=== PATIENT | female | born 1975 | race Caucasian/White ===

== ENCOUNTER → 2019-12-05 08:42 | Outpatient (CLI) | payer BC, SELFPAY ==
--- NOTE | ~2019-12-05 | CT_ITS ---
EXAMINATION: CT cervical spine wo con DATE: 12/05/2019 09:17 INDICATION: Postlaminectomy syndrome. Left neck pain with radiculopathy. TECHNIQUE: Computed tomography (CT) of the cervical spine was performed without intravenous contrast. Automated exposure control and iterative reconstruction technique were employed. The dose-length pro duct was 162.12 mGy-cm. COMPARISON: None FINDINGS: There is 4 degrees dextrocurvature of cervical spine. There are changes of anterior fusion procedure from C3 to C6 with bridging interbody bone graft at C3-C4, but not at C4-C5 or C5-C6. There is an anterior plate with screws from C3 to C6. Intervertebral disc heights are normal. The followin g disc levels are specifically discussed: C2-C3: There is mild bilateral uncovertebral joint osteoarthritis. There is mild left facet joint ost eoarthritis. There is no neural foraminal stenosis. There is no central canal stenosis. C3-C4: There is no uncovertebral joint hypertrophy. There is no facet joint hypertrophy. There is no neural foraminal stenosis. There is no central canal stenosis. C4-C5: There is no uncovertebral joint hypertrophy. There is severe bilateral facet joint osteoarthri tis. There is no neural foraminal stenosis. There is no central canal stenosis. C5-C6: There is mild bilateral uncovertebral joint hypertrophy. There is severe bilateral facet joint osteoarthritis. There is mild bilateral neural foraminal stenosis. There is mild central canal steno sis. C6-C7: There is no uncovertebral joint osteoarthritis. There is mild right and moderate left facet leonardo int osteoarthritis. There is no neural foraminal stenosis. There is no central canal stenosis. C7-T1: There is no uncovertebral joint osteoarthritis. There is severe bilateral facet joint osteoart hritis. There is mild bilateral neural foraminal stenosis. There is no central canal stenosis. IMPRESSION: 1. Anterior fusion procedure from C3 to C6 with bridging interbody bone at C3-C4. 2. Mild cervical spondylosis. Reviewed, dictated and finalized at location A. IMPRESSION: 1. Anterior fusion procedure from C3 to C6 with bridging interbody bone at C3-C 4. 2. Mild cervical spondylosis.
--- NOTE | ~2019-12-05 | XR_ITS ---
EXAMINATION: XR_CERV2-3V_CR DATE: 12/05/2019 09:23 INDICATION: Postlaminectomy syndrome, cervical region. Neck pain. TECHNIQUE: 3 views of the cervical spine including flexion and extension views were obtained. COMPARISON: CT cervical spine 12/05/2019 FINDINGS: There are changes of anterior fusion procedure from C3 to C6 with anterior plate and screws . There is bridging interbody bone at C3-C4. Intervertebral disc heights are normal. There is slight widening of the C4-C5 and C5-C6 disc spaces with flexion. There is severe facet joint osteoarthritis at C7-T1. No central canal stenosis or prevertebral soft tissue swelling. IMPRESSION: 1. Anterior fusion procedure from C3 to C6 with bridging interbody bone at C3-C4. Motion at the C4-C5 and C5-C6 disc spaces with flexion. Reviewed, dictated and finalized at location A. IMPRESSION: 1. Anterior fusion procedure from C3 to C6 with bridging interbody bone at C3-C 4. Motion at the C4-C5 and C5-C6 disc spaces with flexion.
== END ==
PROVIDERS: PCP Physician Assistant; Visit Provider Neurological Surgery
DX: M96.1 Postlaminectomy syndrome, not elsewhere classified (principal); Z98.1 Arthrodesis status; M47.812 Spondylosis without myelopathy or radiculopathy, cervical region
CPT/HCPCS: 72040; 72125

== ENCOUNTER → 2020-06-07 10:26 | Outpatient (CLI) | payer BC, SELFPAY ==
--- NOTE | ~2020-06-07 | MM_ITS ---
EXAMINATION: MM screening marisela BI w brandt HISTORY: Screening mammogram TECHNIQUE: Craniocaudal and mediolateral oblique 3-D tomosynthesis images were obtained and synthetic 2-D images were generated. CAD analysis was submitted and interpreted. COMPARISON: 09/16/2018, 08/05/2017, 06/30/2016 BREAST PARENCHYMAL COMPOSITION: The breasts are heterogeneously dense, which may obscure small masses . FINDINGS: RIGHT BREAST: There is no evidence of suspicious mass, calcification, or architectural distortion to suggest malignancy. There has been no significant interval change. LEFT BREAST: There is possible architectural distortion in the far posterior third of the outer left breast best appreciated 9 cm from the nipple on craniocaudal image 18/40. IMPRESSION: 1. Possible left breast architectural distortion. 2. Additional mammographic views and possible breast ultrasound are recommended. BI-RADS Category 0: Incomplete: Needs additional imaging evaluation. Reviewed, dictated and finalized at location A. [employer] IMPRESSION: 1. Possible left breast architectural distortion. 2. Additional mammographic views and possible breast ultrasound are recommended . BI-RADS Category 0: Incomplete: Needs additional imaging evaluation.
== END ==
PROVIDERS: Visit Provider Nurse Practitioner
DX: Z12.31 Encounter for screening mammogram for malignant neoplasm of breast (principal); R92.8 Other abnormal and inconclusive findings on diagnostic imaging of breast
CPT/HCPCS: 77063; 77067

== ENCOUNTER → 2020-07-01 14:31 | Outpatient (CLI) | payer BC, SELFPAY ==
--- NOTE | ~2020-07-01 | MM_ITS ---
EXAMINATION: MM diagnostic mammo unilat LT HISTORY: Possible architectural distortion on screening mammogram TECHNIQUE: Additional 3-D tomosynthesis images of the left breast were performed and synthetic 2-D im ages were generated. CAD analysis was submitted and interpreted. COMPARISON: 06/07/2020, 09/16/2018, 08/05/2017 FINDINGS: No architectural distortion is identified with spot compression of the outer left breast. T here is no suspicious mass or calcification. IMPRESSION: 1. No mammographic evidence of malignancy. 2. Recommend routine screening mammography in one year. BI-RADS Category 1: Negative Reviewed, dictated and finalized at location A.
== END ==
PROVIDERS: PCP Physician Assistant; Visit Provider Obstetrics & Gynecology Gynecology
DX: R92.8 Other abnormal and inconclusive findings on diagnostic imaging of breast (principal)
CPT/HCPCS: 77065

== ENCOUNTER → 2020-09-24 16:31 | Outpatient (CLI) | payer BC, SELFPAY ==
--- NOTE | ~2020-09-24 | XR_ITS ---
EXAMINATION: XR foot RT min 3V DATE: 09/24/2020 16:47 INDICATION: Right foot contusion. TECHNIQUE: 4 views of right foot were obtained. COMPARISON: Right ankle radiographs 04/05/2016 FINDINGS: Bone alignment is normal. No fracture. Joint spaces are well maintained. IMPRESSION: 1. Normal right foot. Reviewed, dictated and finalized at location A. IMPRESSION: 1. Normal right foot.
== END ==
PROVIDERS: PCP Physician Assistant; Visit Provider Physician Assistant
DX: S90.31XA Contusion of right foot, initial encounter (principal)
CPT/HCPCS: 73630

== ENCOUNTER → 2020-12-12 02:40 | Outpatient (CLI) | payer BC, SELFPAY ==
[2020-12-12 18:57] LABS: SARS-CoV-2 RNA PCR Negative
== END ==
PROVIDERS: PCP Physician Assistant; Visit Provider Internal Medicine Gastroenterology
DX: Z20.822 Contact with and (suspected) exposure to COVID-19 (principal)
CPT/HCPCS: C9803; U0003; U0005

== ENCOUNTER 2020-12-15 01:33 | Day surgery (SDC) | payer BC, SELFPAY ==
[2020-12-04 09:01] VITALS: BMI 21.9
--- NOTE | 2020-12-04 10:14 | PC.NURSE ---
PATIENT CONCERNED ABOUT PREP. SHE STATES COLONOSCOPY 2018 SHE HAD A POOR PREP DUE TO INABILITY TO TOLERATE PREP AND POOR RESULTS. SPOKE WITH DR. REYNOSO AND GAVE INSTRUCTIONS FOR PATIENT TO TAKE 4-5MG DUCOLAX TABLETS AT 1200 AND MAGNESIUM CITRATE 10OZ. AT 2230 2 DAYS PRIOR TO PROCEDURE ALONG WITH FOLLOWING A CLEAR LIQUID DIET, DAY BEFORE PROCEDURE PT WILL REMAIN ON CLEAR LIQUIDS, AT 3PM WILL START SUTAB PREP AND FOLLOW THE INSTRUCTIONS GIVEN WILL TAKE FIRST DOSE AT 3PM AND SECOND DOSE AT 2230. INSTRUCTIONS REVIEWED WITH PATIENT AND SHE VERBALIZES UNDERSTANDING.
[2020-12-15 06:52] VITALS: BP 109/76; PULSE 71; RESP 20; TEMP 36.6; O2SAT 100; BMI 21.6
[2020-12-15] MEDS: LACTATED RINGERS 1,000 ML 150 ML IV CONT (07:05)
--- NOTE | 2020-12-15 07:11 | WPDANESEPPF ---
Anes - Initial Pre Proc Eval Procedure: Operation Date: 12/15/20 08:00 Proposed Procedures p Screening Colonoscopy - Naren Stover MD Date/Time: 12/15/20 07:11 Surgeon: Naren Stover MD Pre Op Diagnosis: neoplasm screening, family hx colon CA Patient Data Age: 45 Gender: F Height: 1.57 m Weight: 53.6 kg Last Vital Signs Temp 36.6 C 12/15/20 06:52 Pulse 71 12/15/20 06:52 Resp 20 12/15/20 06:52 BP 109/76 12/15/20 06:52 Pulse Ox 100 12/15/20 06:52 Allergies Allergy/AdvReac Type Severity Reaction Status Date / Time Penicillins Allergy Intermediate RASH Verified 12/15/20 06:48 Home Medications Medication Instructions Recorded Confirmed Type diltiazem HCl 300 mg 300 mg PO DAILY 07/10/20 12/04/20 History capsule,extended release 24 hr losartan 25 mg tablet 25 mg PO BID 07/10/20 12/04/20 History melatonin 10 mg capsule 10 mg PO QHS 07/10/20 12/04/20 History morphine 15 mg PO TID 12/04/20 12/04/20 History Patient hx anesthesia problems: none Family hx anesthesia problems: none PMFSH Past Medical History Medical History (Updated 12/15/20 @ 07:12 by Milton King MD) Back pain Constipation Family history of colon cancer in mother Headache Family History Family History Mother Hypertension Family history of coronary artery disease Carcinoma of colon, Onset Age: 66 Family history of heart disease in male family member before age 55 Father Family history of gastrointestinal disorder Family history of peptic ulcer Family history of heart disease in male family member before age 55 Social History Social History (Updated 07/10/20 @ 14:33 by Lakisha Uriarte CMA) Smoking status: Never smoker Alcohol intake: current Drinks per week: 3 Substance use: never Substance use type: does not use Living arrangements: with family Spiritual care concerns: No Anes - Eval Final PreProcedure Day of Procedure 12/15/20 07:11 Patient weight: obese Heart: regular rate and rhythm Lungs: clear to auscultation and normal air movement Airway: Mallampati scale class II Neurological: alert and oriented Last oral intake: >/= 8 hours ASA classification: III Emergent: no Anesthetic plan: proceed Anesthesia type and monitoring: general GIVS Informed Consent: The patient's anesthetic plan and its attendant risks and benefits were discussed with the patient/family/POA. Questions were solicited and answers provided to the satisfaction of the patient/family/POA.
--- NOTE | 2020-12-15 07:59 | PM.HPGS ---
History of Present Illness History of Present Illness Consent: Risks, benefits, and alternatives have been discussed and questions answered. Patient agrees to proceed with procedure. Chief complaint: neoplasm screening, family hx colon CA Narrative: Stacey Davies is a 45 year old female with first colonoscopy 2010 then 1 year ago but poor prep (mother has colon cancer). Review of Systems Constitutional: Constitutional: Denies headache(s) and Denies weakness Eyes: Eyes: Denies blurry vision ENT: Reports Normal hearing present, Denies headache(s) and Denies neck pain Cardiovascular: Cardiovascular: Denies chest pain and Denies dyspnea Respiratory: Respiratory: Denies dyspnea Gastrointestinal: Gastrointestinal: Reports no additional gastrointestinal complaints Genitourinary: Genitourinary: Denies dysuria Musculoskeletal: Musculoskeletal: Denies neck pain Integumentary/Breasts: Skin/Breast: Denies dry skin Neurologic: Reports Normal hearing present, Denies headache(s) and Denies weakness Psychiatric: Psychiatric: Denies anxiety Endocrine: Endocrine: Denies change in body appearance Hematologic/Lymphatic: Hematologic/Lymphatic: Denies easy bleeding Allergic/Immunologic: Allergic/Immunologic: Denies urticaria PMFSH Past Medical History Medical History (Updated 12/15/20 @ 07:12 by Milton King MD) Back pain Constipation Family history of colon cancer in mother Headache Family History Family History Mother Hypertension Family history of coronary artery disease Carcinoma of colon, Onset Age: 66 Family history of heart disease in male family member before age 55 Father Family history of gastrointestinal disorder Family history of peptic ulcer Family history of heart disease in male family member before age 55 Social History Social History (Updated 07/10/20 @ 14:33 by Lakisha Uriarte [facility]) Smoking status: Never smoker Alcohol intake: current Drinks per week: 3 Substance use: never Substance use type: does not use Living arrangements: with family Spiritual care concerns: No Meds Home Medications and Allergies Home Medications Medication Instructions Recorded Confirmed Type diltiazem HCl 300 mg 300 mg PO DAILY 07/10/20 12/04/20 History capsule,extended release 24 hr losartan 25 mg tablet 25 mg PO BID 07/10/20 12/04/20 History melatonin 10 mg capsule 10 mg PO QHS 07/10/20 12/04/20 History morphine 15 mg PO TID 12/04/20 12/04/20 History Allergies Allergy/AdvReac Type Severity Reaction Status Date / Time Penicillins Allergy Intermediate RASH Verified 12/15/20 06:48 Vital Signs Vital Signs - 24 hr 12/15/20 06:52 Temperature 97.9 F Pulse Rate 71 Respiratory Rate 20 Blood Pressure 109/76 Pulse Oximetry 100 Exam Const: General: comfortable and no acute distress HENMT: General nose exam: Normal nares present Eyes: General: appearance normal, both eyes and all related structures Neck: Neck: no JVD Resp: Auscultation: clear to auscultation bilaterally Cardio: Rate: regular rate Rhythm: regular rhythm GI: Inspection: non-distended GI Palp: Yes Soft to palpation Skin: General skin exam: normal color Neuro: General: gait normal Speech: normal speech Extrem: General: normal to inspection Psych: Mental Status: mental status grossly normal Assessment and Plan Assessment and plan (1) Family history of colon cancer in mother: Code(s): Z80.0 - Family history of malignant neoplasm of digestive organs Status: Acute Assessment and Plan: colonoscopy
--- NOTE | 2020-12-15 08:12 | SUR.OPER ---
cecal time 0812
[2020-12-15 08:24] VITALS: BP 95/56; PULSE 82; RESP 19; O2SAT 97
[2020-12-15 08:34] VITALS: BP 104/57; PULSE 69; RESP 15; O2SAT 99
[2020-12-15 08:44] VITALS: BP 110/67; PULSE 66; RESP 15; O2SAT 100
== END 2020-12-15 08:54 | disposition home or self-care (01) ==
PROVIDERS: PCP Physician Assistant; Visit Provider Internal Medicine Gastroenterology
PROC: 0DJD8ZZ Inspection of Lower Intestinal Tract, Via Natural or Artificial Opening Endoscopic (ICD-10-PCS; CPT 45378; principal; 2020-12-15 08:00)
DX: Z12.11 Encounter for screening for malignant neoplasm of colon (principal); D12.2 Benign neoplasm of ascending colon; K57.30 Diverticulosis of large intestine without perforation or abscess without bleeding; K64.8 Other hemorrhoids; K64.4 Residual hemorrhoidal skin tags; Z80.0 Family history of malignant neoplasm of digestive organs
CPT/HCPCS: 45385; 88305; J2704; J7120

== ENCOUNTER → 2021-05-20 13:28 | Outpatient (CLI) | payer BC, SELFPAY ==
--- NOTE | ~2021-05-20 | MR_ITS ---
EXAMINATION: MR brain/brain stem wo con DATE: 05/20/2021 14:18 INDICATION: Chronic migraine without aura without status migrainosus. TECHNIQUE: Magnetic resonance imaging (MRI) of the brain and brainstem was performed without intraven ous contrast. Sequences included sagittal and axial T1-weighted FSE, axial diffusion-weighted FS EPI, axial T2*-weighted GRE, axial T2-weighted FLAIR Propeller, and axial T2-weighted Propeller. Apparent diffusion coefficient (ADC) maps were created. COMPARISON: None. FINDINGS: There is no intracranial hemorrhage, acute infarction, or abnormal intracranial mass lesion . The ventricles are normal in size. The paranasal sinuses are clear. The orbits are normal. The mast oid air cells are normal. IMPRESSION: 1. Normal brain. Reviewed, dictated and finalized at location A. ER WIRE LOOM IMPRESSION: 1. Normal brain.
== END ==
PROVIDERS: PCP Physician Assistant
DX: G43.709 Chronic migraine without aura, not intractable, without status migrainosus (principal)
CPT/HCPCS: 70551

== ENCOUNTER → 2021-08-07 12:19 | Outpatient (CLI) | payer BC, SELFPAY ==
--- NOTE | ~2021-08-07 | MM_ITS ---
EXAMINATION: MM screening marisela BI w brandt HISTORY: Screening mammogram TECHNIQUE: Craniocaudal and mediolateral oblique 3-D tomosynthesis images were obtained and synthetic 2-D images were generated. CAD analysis was submitted and interpreted. COMPARISON: 07/01/2020, 06/07/2020, 09/16/2018, 08/2017 bilateral screening mammogram examinations BREAST PARENCHYMAL COMPOSITION: The breasts are heterogeneously dense, which may obscure small masses . FINDINGS: Possible new focal asymmetry in the mid depth outer left breast, lower outer quadrant. Diag nostic left mammogram is recommended, with ultrasound if required. Otherwise there is no evidence of suspicious mass, calcification, or architectural distortion to sug gest malignancy in either breast. There has been no other suspicious interval change. IMPRESSION: 1. Possible new focal asymmetry in the lower outer left breast 2. Diagnostic left mammogram is recommended, with ultrasound if required BI-RADS Category 0: Incomplete: Needs additional imaging evaluation. Reviewed, dictated and finalized at location A.
== END ==
PROVIDERS: PCP Nurse Practitioner; Visit Provider Nurse Practitioner
DX: Z12.31 Encounter for screening mammogram for malignant neoplasm of breast (principal); R92.8 Other abnormal and inconclusive findings on diagnostic imaging of breast
CPT/HCPCS: 77063; 77067

== ENCOUNTER → 2021-08-25 07:45 | Outpatient (CLI) | payer BC, SELFPAY ==
--- NOTE | ~2021-08-25 | MMUS_ITS ---
EXAMINATION: MM diagnostic marisela LT w brandt, US breast LT complete HISTORY: TECHNIQUE: Additional 3-D tomosynthesis images of were performed and synthetic 2-D images were genera rafael. CAD analysis was submitted and interpreted. High resolution breast ultrasound was performed. COMPARISON: None FINDINGS: MAMMOGRAPHIC FINDINGS: No suspicious reproducible mass or architectural distortion or any malignant calcification, skin thic kening or retraction is evident. However, the heterogeneously dense stroma may obscure a mass. Ultrasound examination therefore was pe rformed. ULTRASOUND: 2:00 2 cm from nipple: Irregular hypoechoic 2.9 x 7.7 x 5.8 mm circumscribed lesion is noted with nor mal color flow signal. . No shadowing is noted. Considering the irregular margins and some internal v ascularity, ultrasound-guided biopsy is recommended. No suspicious mass or shadowing is detected otherwise. IMPRESSION: 1. Indeterminate 2.9 x 7.7 x 5.8 mm circumscribed hypoechoic lesion with minimal internal vascularity at 2:00 2 cm from nipple 2. Ultrasound-guided biopsy is recommended BI-RADS category 4, suspicious findings. Dr. Cormier telephoned the report and ultrasound guided biopsy recommendation on 08/21/2021 at 08 4 cm to Triage Department voicemail at extension 225 Reviewed, dictated and finalized at location A. IMPRESSION: 1. Indeterminate 2.9 x 7.7 x 5.8 mm circumscribed hypoechoic lesion with minima l internal vascularity at 2:00 2 cm from nipple 2. Ultrasound-guided biopsy is recommended BI-RADS category 4, suspicious findings. Dr. Cormier telephoned the report and ultrasound guided biopsy recommendation on at 08 4 cm to Triage Department voicemail at extension 225
== END ==
PROVIDERS: PCP Physician Assistant; Visit Provider Obstetrics & Gynecology Gynecology
DX: R92.8 Other abnormal and inconclusive findings on diagnostic imaging of breast (principal)
CPT/HCPCS: 76641; 77061; 77065; G0279

== ENCOUNTER → 2022-08-10 14:46 | Outpatient (CLI) | payer BC, SELFPAY ==
--- NOTE | ~2022-08-10 | MM_ITS ---
EXAMINATION: MM screening marisela BI w brandt HISTORY: Screening mammogram TECHNIQUE: Craniocaudal and mediolateral oblique 3-D tomosynthesis images were obtained and synthetic 2-D images were generated. CAD analysis was submitted and interpreted. COMPARISON: 08/07/2021, 06/07/2020, 09/16/2018 BREAST PARENCHYMAL COMPOSITION:The breasts are heterogeneously dense, which may obscure small masses. FINDINGS: Benign calcifications at the upper, outer right breast are noted. No suspicious mass, calci fication, or architectural distortion are identified in either breast to suggest malignancy. There mtz s been no suspicious interval change. IMPRESSION: No mammographic evidence of malignancy. Recommend routine screening mammography in one year. BI-RADS Category 2: Benign finding(s). Reviewed, dictated and finalized at location .
== END ==
PROVIDERS: PCP Physician Assistant; Visit Provider Nurse Practitioner
DX: Z12.31 Encounter for screening mammogram for malignant neoplasm of breast (principal)
CPT/HCPCS: 77063; 77067

== ENCOUNTER 2023-08-30 08:07 | Outpatient (CLI) | payer BC, SELFPAY ==
--- NOTE | 2023-08-30 13:57 | WPDPFTINT ---
PFT Procedure Performed PFT Procedure Performed Spirometry with Pre/Post Bronchodilator Plethysmography (Lung Vol) Diffusing Cap (DLCO) Flow Vol Loop PFT Interpretation Lung volumes were measured with the body plethysmography method. Lung volumes are unremarkable. Spirometry showed normal expiratory flow rates and a normal FEV1 to FVC ratio 76%. Following administration of a bronchodilator there was no significant increase in expiratory flow rates. Lung diffusion capacity is within the normal range at 93% predicted. The flow-volume loop is unremarkable. Impression: Spirometry, lung volumes, lung diffusion capacity all within the normal range.
== END 2023-08-30 08:08 | disposition home or self-care (01) ==
PROVIDERS: PCP Physician Assistant; Visit Provider Physician Assistant
DX: J45.909 Unspecified asthma, uncomplicated (principal)
CPT/HCPCS: 94060; 94726; 94729

== ENCOUNTER 2023-12-13 13:05 | Outpatient (CLI) | payer BC, SELFPAY ==
--- NOTE | ~2023-12-13 | MM_ITS ---
EXAMINATION: MM screening marisela BI w brandt HISTORY: Screening mammogram TECHNIQUE: Craniocaudal and mediolateral oblique 3-D tomosynthesis images were obtained and synthetic 2-D images were generated. CAD analysis was submitted and interpreted. COMPARISON: 08/21/2022, 08/25/2021, 622, 06/07/2020 BREAST PARENCHYMAL COMPOSITION:Dense: The breasts are heterogeneously dense, which may obscure small masses. FINDINGS: Stable benign calcifications at the outer right breast. No suspicious mass, calcification, or architectural distortion are identified in either breast to suggest malignancy. There has been no suspicious interval change. IMPRESSION: No mammographic evidence of malignancy. Recommend routine screening mammography in one year. BI-RADS Category 2: Benign finding(s). Reviewed, dictated and finalized at location .
== END 2023-12-13 13:06 | disposition home or self-care (01) ==
PROVIDERS: PCP Physician Assistant; Visit Provider Obstetrics & Gynecology Gynecology
DX: Z12.31 Encounter for screening mammogram for malignant neoplasm of breast (principal)
CPT/HCPCS: 77063; 77067

== ENCOUNTER 2024-01-03 12:08 | Outpatient (CLI) | payer BC, SELFPAY ==
--- NOTE | ~2024-01-03 | XR_ITS ---
AP and lateral views of the left hip Clinical history: Pain Findings: No acute fracture or dislocation is seen. Osseous alignment is anatomic. Left hip joint is preserved. Soft tissues are unremarkable. Impression: No significant abnormality is seen. Reviewed, dictated and finalized at location M. Impression: No significant abnormality is seen.
== END 2024-01-03 12:09 | disposition home or self-care (01) ==
PROVIDERS: PCP Physician Assistant; Visit Provider Physician Assistant
DX: M79.672 Pain in left foot (principal); M25.552 Pain in left hip
CPT/HCPCS: 73502; 73630

== ENCOUNTER 2024-07-10 09:58 | Outpatient (CLI) | payer BC, SELFPAY ==
--- NOTE | ~2024-07-10 | XR_ITS ---
Clinical Indication: Cough PA and lateral views of the chest: Comparison: 01/02/2008 Findings: The lungs are clear, without evidence of focal consolidation or pleural effusion. Cardiome diastinal silhouette is within normal limits. Bones and soft tissues are unremarkable. Impression: Normal chest. Reviewed, dictated and finalized at [facility]. Impression: Normal chest.
== END 2024-07-10 09:59 | disposition home or self-care (01) ==
PROVIDERS: PCP Physician Assistant; Visit Provider Physician Assistant
DX: R05.9 Cough, unspecified (principal)
CPT/HCPCS: 71046

== ENCOUNTER 2024-12-28 11:53 | Outpatient (CLI) | payer BC, SELFPAY ==
--- NOTE | ~2024-12-28 | MM_ITS ---
EXAMINATION: screening [facility] BI w [facility] INDICATION: Asymptomatic, referred for screening mammogram COMPARISON: 12/13/2023 through 09/16/2018 TECHNIQUE: Digital Breast Tomosynthesis CC, MLO views of Both breasts were obtained with computer-aided detection to assist in interpretation of the study. FINDINGS: The breasts are heterogeneously dense, which may obscure small masses. There is increasing group of microcalcifications the background of focal asymmetry in the superior lateral right breast at posterior third. Elsewhere, there are no mammographic features of malignancy. IMPRESSION: 1. Right breast Incompletely characterized group of calcifications. 2. No evidence of malignancy in the Left breast. RECOMMENDATION: Right breast Diagnostic mammogram with true lateral, and appropriate magnification views. BI-RADS Category 0: Incomplete: Needs additional imaging evaluation. Reviewed, dictated and finalized at location B. IMPRESSION: 1. Right breast Incompletely characterized group of calcifications. 2. No evidence of malignancy in the Left breast. RECOMMENDATION: Right breast Diagnostic mammogram with true lateral, and appropriate magnificat ion views. BI-RADS Category 0: Incomplete: Needs additional imaging evaluation.
--- OUTSIDE RECORDS SUMMARY | 2024-12-28 11:55 | XMS_ITS | Encounter Summary ---
Author Organization [facility] Address [address] [place] [address] Care Team Providers Care Staff Nuclear Weapons Officer Name Role Phone Neetu Andre Primary Care Provider [phone] Encounter Details Date Type Department Care Team (Late st Contact Info) Description 08/10/2005 Outpatient [facility] [id number] [place] [address] [address] [place] [address] Shivam Farnsworth (Two) Social History Tobacco Use Types Packs/Day Years Used Date Smoking Tobacco: Never Assessed Comments Unknown Sex and Gender Information Value Date Recorded Sex Assigned at Not on file Legal Sex Female 4:46 AM CLINICAL LAB SPECIALIST Gender Identity Not on file Sexual Orientation Not on file documented as of this encounter Plan of Treatment Not on file documented as of this encounter Visit Diagnoses Not on filedocumented in this encounter Care Teams Staff Nuclear Weapons Officer Relationship Specialty Start Date End Date Neetu Andre PA PCP - General Physician Cigar Brander 12/13/18 documented as of this encounter
--- OUTSIDE RECORDS SUMMARY | 2024-12-28 11:55 | XMS_ITS | Patient Health Record ---
Author Organization [facility] Address [address] [facility] [address] [place], [place] [id number] Care Team Providers Care Pig Farmer Name Role Phone RYAN OSPINA Primary Care Provider Timothy chelo JessicaMargaret whitney Unavailable [phone] REASON FOR REFERRAL No Information MEDICATIONS Medication SIG (Take, Route, Frequency, Duration) Notes Start Date End Date Status Burr Active Amrix 15 mg 1 cap(s) orally once a day Active dilTIAZem 360 mg/24 hours 1 cap(s) orall y take once a day Active dihydroergotamine Ac tive losartan/HCTZ 50/12.5 mg once a day Active Lo Loestrin Fe (28 Day) biphasic 10 mcg-1 mg 1 tab(s) orally once a day Active Mirena Active ondansetron 4 mg 1 tab(s) orally ever y 8 hours Active SOCIAL HISTORY Tobacco Use: Social History Observation Description Date Details (start date - stop date) Never Smoker NA - NA Sex Assigned At : Social History Observation Description Sex Assigned At Unknown Tobacco Use: Question Answer Notes Smoking Status nonsmoker PROBLEMS Problem Type ICD Code Onset Dates Problem Status W/U Status Risk SNOMED Code Notes Problem Cervicalgia (M54.2) Active confirmed 82001606 Problem Left shoulder pain (M25.512) Active confirmed 60309417 Problem Myalgia (M79.1) Active confirmed 811940 01 Problem Skin rash (R21) Active confirmed 849835 003 Problem Sacroiliac pain (M53.3) Active confirmed Sacroiliac joint pain (525722215) Problem Non-smoker (Z78.9) Active confirmed 9650773 Problem Other snf (current) drug therapy (Z79.899) Active confirmed 453524457 Problem Dry eyes (H04.123) Active confirmed Dry eyes (118438107) PLAN OF TREATMENT Pending Test Test Name Order Date X ray : SI joints- outside order 016 -Xray slip given 09/17/2015 Future Test Test Name Order Date AST (SGOT) 03/04/2016 Creatinine, Serum 03/04/2016 ALT (SGPT) 03/04/2016 CBC With Differential/Platelet 6 Lab slip given 03/04/2016 Insurance Providers Payer Name Payer Address Payer Phone Subscriber Number Group Number Insured Name Patient Relationship to Insured Coverage Start Date Coverage End Date [employer] PPO - NR [address] [place] [address] [id number] Stacey Davies Self - patient is the insured 6 MEDICAL (GENERAL) HISTORY Medical History History ICD Code bruises easily migraine headache tension headaches ear ache high blood pressure irregular heart beat rapid heartbeat swelling of ankles/feet bronchitis bowel changes constipation irritable bowel syndrome hemorrhoids indigestion Nausea frequent urination gallstones stomach pain/cramps rectal bleeding chicken pox pneumonia rheumatic fever Surgical History Surgery Date(Month/Year) fusion C3-C6 2015 C3 fusion 2014 Lasik 2005 C section 2000 hemorrhoidectomy 2005 gallbladder surgery 2004 [place] teeth 1995
--- OUTSIDE RECORDS SUMMARY | 2024-12-28 11:55 | XMS_ITS | Encounter Summary ---
Author Organization [facility] Address 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
--- OUTSIDE RECORDS SUMMARY | 2024-12-28 11:56 | XMS_ITS | Clinical Summary ---
Author Organization [facility] Address [address] [place] [address] Care Team Providers Care Depot Agent Name Role Phone JesNeetu Primary Care Pr ovider Nico Lam MD Unavailable [phone] Allergies Active Allergy Reactions Criticality Noted Date Comments Penicillins Rash Medium Occurred about 20 years ago as a young adult. Pravastatin Unknown Low 02/23/2016 Medications melatonin 5 mg tablet Take 1 tablet (5 mg total) by mouth nightly as needed Active losartan (COZAAR) 25 mg tablet Take 2 tablets (50 mg total) by mouth daily Active cholecalciferol (VITAMIN D-3) 1,000 unit capsule Take 1 capsule (1,000 Units total) by mouth daily Active Nurtec ODT tablet,disinteg rating 1 tablet (75 mg total) as needed 2 Active dilTIAZem CD (CARDIZEM CD) 300 mg 24 hr capsule Take 1 capsule (300 mg total) by mouth daily Active multivitamin capsule Take 1 capsule by mouth daily Active magnesium gluconate 200 mg tabletIndicatio ns:hypomagnesem ia Take 1 tablet (200 mg total) by mouth 2 (two) times a day Active fish oil-dha-epa 1,200-144-216 mg capsule Take 1 capsule by mouth daily Active acetaminophen 500 mg capsuleIndicati ons:Pain Take 2 capsules (1,000 mg total) by mouth every 6 (six) hours 30 tablet 1 2 Active Additional Information Patient not taking.Reported on 11/06/2024 ciprofloxacin-d exAMETHasone (CIPRODEX) otic suspension INSTILL 4 DROPS INTO AFFECTED EAR(S) TWICE A DAY FOR 7 DAYS Active estradioL (VIVELLE-DOT) 0.025 mg/24 hr APPLY 1 PATCH TOPICALLY TO THE SKIN 2 TIMES A WEEK 5 Active progesterone (PROMETRIUM) 200 mg capsule Take by mouth daily 5 Active hydrOXYzine (ATARAX) 25 mg tablet Take 1 tablet (25 mg total) by mouth 3 (three) times a day as needed for itching Active Active Problems Problem Noted Date Diagnosed Date Pseudarthrosis after fusion or arthrodesis 12/23 Overview (12/23/2021): Added automatically from request for surgery [id number] Pseudoarthrosis of cervical spine 10/07/2021 Assessment & Plan (10/07/2021 3:32 PM CDT): Ms. Davies has pseudoarthrosis of the cervical spine with increasing neck pain and popping. We again discussed that neck pain can be very difficult symptom to treat. If it is related pseudoarthrosis, she likely very surgery. It is unrelated, then not have much effect pain. She voices understanding. I have offered her surgery in the form C4-C6 posterior fixation and fusion with allograft. She will think about things and let us know how she wishes to proceed. Postlaminectomy syndrome, cervical region 2019 Overview (12/19/2019): Added automatically from request for surgery [id number] Assessment & Plan (02/05/2021 2:41 PM CDT): Ms. Davies has persistent neck pain with pseudoarthrosis C4-5 and C5-6. She has a solid fusion C3-4. She has no signs of radiculopathy or myelopathy. I have offered her posterior fixation from C4-C6 with posterior fusion whenever she wishes to proceed. She is aware that neck pain is a symptom that is difficult to treat surgically and still may not be gone after anterior and posterior fusion of these levels. Assessment & Plan (07/29/2020 2:04 PM CDT): Ms. Davies is status post C4-C6 ACDF on 02/18/2020 for pseudoarthrosis. She reports that she has resolution of arm symptoms. She still has continued stiffness in her neck and upper trapezius stiffness and pain which is unchanged from prior to surgery. She continues with dry needling by physical therapy which she finds extremely helpful. We will reorder this. I plan to see her back in 6 months time with repeat flexion-extension x-rays at that time. Assessment & Plan (03/25/2020 1:45 PM EDUCATION ADVISER): PLAN: - Start physical therapy/aqua therapy/home exercise program - After 6 weeks, patient may resume NSAIDs, may increase activity as tolerated. 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 Lam in 4.5 months with Flexion/Extension Cervical spine films. Left arm pain 11/20/2019 Assessment & Plan (11/27/2019 11:35 AM CDT): Ms. Davies has left neck and arm pain. She has some known bursitis of her left shoulder. She is status post C3-C6 ACDF. Her current MRI does not show any significant spinal cord or nerve root impingement. It is not completely clear whether she has a solid fusion at C4-5 and C5-6. We will get flexion-extension films to look for any movement within the construct or abnormal movement above or below the construct. We will also get a CT of the cervical spine to better evaluate the fusion within the construct. We will speak to her by phone about the results and further recommendations. If it seems to be solidly fused with no abnormal listhesis, she may benefit from a left upper extremity EMG/nerve conduction stretching to evaluate for peripheral nerve entrapment verses cervical radiculopathy. Cervicalgia 04/17/2010 Assessment & Plan (02/04/2021 1:39 PM CDT): Ms. Davies is status post C3-4 fusion and anterior cervical instrumentation C4-C6. She has some movement at C4-5 and C5-6 on dynamic range of motion. She has a little over 1 mm movement at C2-3 on dynamic range of motion which is unchanged compared to prior films. She has been offered and oral surgery for a small airway by an ENT surgeon. She is considering this. I have offered her C4-C6 posterior fixation and fusion whenever she wishes to proceed given her chronic neck pain and pseudoarthrosis at C4-5 and C5-6. We discussed including the C2-3 level, but this is risky given the trajectory of the screws through C2 pars. Diarrhea 12/20/2008 Constipation 12/20/2008 Heartburn 12/20/2008 Hypertension 12/20/2008 Assessment & Plan (11/11/2019 4:21 PM CDT): Blood pressure is under excellent control. Will not make any changes in the regimen. Maintain lifestyle modifications. Encounters Date Type Department Care Team Description 12/04/2024 12:32 PM CDT - 12/04/2024 11:59 PM CDT Hospital Encounter [facility] ` [address] [place] [address] Other specified conditions associated with female genital organs and menstrual cycle Discharge Disposition: Discharge to home or self care 11/22/2024 3:29 PM CDT - 11/22/2024 11:59 PM CDT Hospital Encounter [facility] Imaging and Radiology [address] [place] [address] Calculus of kidney Discharge Disposition: Discharge to home or self care 11/07/2024 Results Follow-Up [facility] [place] [address] [place] [phone] Arina Morin NP Urine culture Urine, clean voided 11/06/2024 8:19 AM CDT - 11/06/2024 11:59 PM CDT Hospital Encounter [address] [address] Body aches Discharge Disposition: Discharge to home or self care 11/06/2024 8:15 AM CDT Office Visit [facility] [place] [address] [phone] Nichols, Paula F., JET ENGINE MECHANIC Body aches (Primary Dx); Acute cystitis with hematuria from Last 3 Months Immunizations Immunization Administration Dates Next Due Pfizer SARS-CoV-2 Monovalent Vaccination (12+ Yrs) PURPLE 07/27/2020,07/05/2020 Surgical History Surgery Date Site/Laterality Comments OR HEMORRHOIDECTOMY INTERNAL RUBBER BAND LIGATIONS 04/04/2000 - 04/03/2001 WISDOM TOOTH EXTRACTION LAPAROSCOPIC CHOLECYSTECTOMY SECTION ANTERIOR CERVICAL DISCECTOMY W/ FUSION 04/04/2013 - 04/03/2014 C3-4 HYSTERECTOMY LASIK SPINE HARDWARE REMOVAL 04/04/2014 - 04/03/2015 C3-6 ACDF ANTERIOR FUSION CERVICAL SPINE 02/03/2020 - 03/03/2020 C4-6 ACDF Revision (Genaro) POSTERIOR FUSION CERVICAL SPINE 04/02/2022 C3-T1(Dr. Vargas) Medical History Medical History Date Comments Migraines HTN (hypertension) Postlaminectomy syndrome, cervical region IBS (irritable bowel syndrome) Osteoarthritis PONV (postoperative nausea and vomiting) Family History Medical History Relation Name Comments Cancer Father Cancer Mother Diabetes Mother Relation Name Status Comments Father Mother Social History Tobacco Use Types Packs/Day Years Used Date Smoking Tobacco: Never Smokeless Tobacco: Never Tobacco Cessation:Counseling Given: Not Answered Alcohol Use Standard Drinks/Week Comments Yes 0 (1 standard drink = 0.6 oz pur e alcohol) 2-3 PER WEEK AUDIT-C Answer Date Recorded Q1: How often do you have a drink containing alc ohol? 2-3 times a week 03/17/2022 Q2: How many drinks containi ng alcohol do you have on a typical day when you are drinking? 1 or 2 03/17/2022 Q3: How often do you have si x or more drinks on one occasion? Never 03/17/2022 PHQ-2 Answer Date Recorded PHQ-2 Total Score (If total score is 3 or more points, staff should administer the PHQ-9) 0 11/20/2019 Comments No Sex and Gender Information Value Date Recorded Sex Assigned at Not on file Legal Sex Female 9:44 PM EDUCATION ADVISER Gender Identity Not on file Sexual Orientation Not on file Obstetrics History Last Filed Vital Signs Vital Sign Reading Time Taken Comments Blood Pressure 108/68 11/06/2024 8:11 AM CDT Pulse 98 11/06/2024 8:11 AM CDT Temperature 36.3 C (97.4 F) 11/06/2024 8:11 AM CDT Respiratory Rate 16 11/06/2024 8:11 AM CDT Oxygen Saturation 98% 11/06/2024 8:11 AM CDT Inhaled Oxygen Concentration - - Weight 61.7 kg (136 lb) 11/06/2024 8:11 AM CDT Height 157.5 cm (5' 2) 11/06/2024 8:11 AM CDT Body Mass Index 24.87 11/06/2024 8:11 AM CDT Plan of Treatment Health Maintenance Due Date Last Done Comments Breast Cancer Screening-Mammogram 1975 Colon Cancer Screening-Colonoscopy 1975 Hepatitis C Screening 1975 Hepatitis B Screening 06/05/1993 Regular Well Visit/Exam 18-64 06/05/1993 DTaP/Tdap/Td Vaccine (1 - Tdap) 04/05/1999 04/04/1999 Depression Screening 11/19/2020 11/20/2019, 11/20/2019 Covid-19 Vaccine (3 - 2024-2 6 season) 2024 07/27/2020, 07/05/2020 Influenza Vaccine (#1) 2024 01/23/2007 Pneumococcal vaccine <65 Aged Out No longer eligible based on patient's age to complete this topic Medical Devices Implanted Type Area Controls Designer Device Identifier Shelf Expiration Date Model / Serial / Lot Unknown Neck [employer] 700-025 I Factor Allograft Putty Syringe Graft 2.5cc Bone - [id number] Implanted:Qty : 1 on 02/18/2020 by Nico Lam MD at [facility] N/A: Spine Cervical [employer] [id number] 12/02/2022 700-025 / / [id number] [facility] 3d Cervical 14.9s90q6ur 7 Deg - [id number] Implanted:Qty : 1 on 02/18/2020 by Nico Lam MD at [facility] N/A: Spine Cervical Core Link [id number] 03/20/2024 [id number] / / [id number] [employer] 3d Cervical 14.8h88t6gd 7 Deg - [id number] Implanted:Qty : 1 on 02/18/2020 by Nico Lam MD at [facility] N/A: Spine Cervical Core Link [id number] 01/10/2024 [id number] / / [id number] Core Link Anodyne 30mm Level 2 Spine Cervical Anterior Plate Bone - [id number] Implanted:Qty : 1 on 02/18/2020 by Nico Lam MD at [facility] N/A: Spine Cervical Core Link / / Core Link Anodyne 4mm 14mm Variable Angle Self Tap Spine Cervical Screw - [id number] Implanted:Qty : 6 on 02/18/2020 by Nico Lam MD at [facility] N/A: Spine Cervical Core Link / / Depuy Synthes Spine 3.5mm 12mm Ply Spine Screw Bone Nonsterile 4mm Eduard [id number] - [id number] Implanted:Qty : 3 on 04/02/2022 by Yony Vargas MD at [facility] N/A: Spine Cervical Depuy Synthes Spine [id number] / / Depuy Synthes Spine 4.5mm 24mm Ply Spine Pedicle Screw Bone Nonsterile 4mm Eduard [id number] - [id number] Implanted:Qty : 2 on 04/02/2022 by Yony Vargas MD at [facility] N/A: Spine Cervical Depuy Synthes Spine [id number] / / Depuy Synthes Spine Lock Cap Spine T15 Standard Screw Set Titanium Nonsterile [id number] - [id number] Implanted:Qty : 9 on 04/02/2022 by Yony Vargas MD at [facility] N/A: Spine Cervical Depuy Synthes Spine [id number] / / Depuy Synthes Spine 4mm 70mm Lordosis Eduard Spinal Titanium [id number] - [id number] Implanted:Qty : 1 on 04/02/2022 by Yony Vargas MD at [facility] N/A: Spine Cervical Depuy Synthes Spine [id number] / / Depuy Synthes Spine 4mm 75mm Lordosis Eduard Spinal Titanium [id number] - [id number] Implanted:Qty : 1 on 04/02/2022 by Yony Vargas MD at [facility] N/A: Spine Cervical Depuy Synthes Spine [id number] / / Depuy Synthes Spine Substitute Bone Graft Fibergraft Medium Spine [place] [id number] - [id number] Implanted:Qty : 1 on 04/02/2022 by Yony Vargas MD at [facility] N/A: Spine Cervical Depuy Synthes Spine 06/20/2023 [id number] / / [id number] Depuy Synthes Spine 3.5mm 14mm Ply Spine Screw Bone Nonsterile 4mm Eduard [id number] - [id number] Implanted:Qty : 1 on 04/02/2022 by Yony Vargas MD at [facility] N/A: Spine Cervical Depuy Synthes Spine [id number] / / Depuy Synthes Spine 3.5mm 16mm Ply Spine Screw Bone Nonsterile 4mm Eduard [id number] - [id number] Implanted:Qty : 3 on 04/02/2022 by Yony Vargas MD at [facility] N/A: Spine Cervical Depuy Synthes Spine [id number] / / Procedures Procedure Name Priority Date/Time Associated Diagnosis Comments US PELVIS W ENDOVAGINAL Schedule Routine, Read Routine (OP Routine) 12/04/2024 4:20 PM CDT Other specified conditions associated with female genital organs and menstrual cycle CT ABDOMEN PELVIS WO CONTRAST Schedule Routine, Read Routine (OP Routine) 11/22/2024 3:39 PM CDT Calculus of kidney COVID-19 POC Routine 11/06/2024 8:31 AM CDT Body aches URINE CULTURE Routine 11/06/2024 8:19 AM CDT Body aches POCT URINALYSIS DIPSTICK Routine 11/06/2024 8:18 AM CDT Body aches from Last 3 Months Results * US Pelvis W Endovaginal (12/04/2024 4:20 PM CDT) Anatomical Region Laterality Modality Pelvis N/A Ultrasound 12/04/2024 6:01 PM CDT Impressions 12/04/2024 6:01 PM CDT Hysterectomy. No definite abnormal masses seen in the pelvis. Electronically signed by: Theresa Nunez M.D. [facility] 12/04/2024 6:01 PM CDT EXAMINATION: US PELVIS W ENDOVAGINAL HISTORY: The patient is a 49-year-old female who presents with left lower quadrant pain. Comparison made with the recent CT scan dated 11/22/2024. TECHNIQUE: Transabdominal and transvaginal pelvic sonogram was performed with eagle scale imaging, color Doppler imaging and spectral waveform analysis. FINDINGS: The patient has had a prior hysterectomy. The vaginal cuff is normal in appearance. The right ovary is not seen with certainty. The left ovary measures 3.2 x 3.0 x 2.0 cm in size. Color Doppler imaging reveals blood flow to the left ovary. No free fluid seen in the cul-de-sac. Procedure Note Theresa Nunez MD - 12/04/2024 EXAMINATION: US PELVIS W ENDOVAGINAL HISTORY: The patient is a 49-year-old female who presents with left lower quadrant pain. Comparison made with the recent CT scan dated 11/22/2024. TECHNIQUE: Transabdominal and transvaginal pelvic sonogram was performed with eagle scale imaging, color Doppler imaging and spectral waveform analysis. FINDINGS: The patient has had a prior hysterectomy. The vaginal cuff is normal in appearance. The right ovary is not seen with certainty. The left ovary measures 3.2 x 3.0 x 2.0 cm in size. Color Doppler imaging reveals blood flow to the left ovary. No free fluid seen in the cul-de-sac. IMPRESSION: Hysterectomy. No definite abnormal masses seen in the pelvis. Electronically signed by: Theresa Nunez M.D. Neetu MOTA IMJennifer US PROCEDURE S Final Result * CT Abdomen Pelvis WO Contrast (11/22/2024 3:39 PM CDT) Anatomical Region Laterality Modality Body N/A Computed Tomogra phy 11/22/2024 3:51 PM CDT Impressions 11/22/2024 3:51 PM CDT 1. Nonspecific left lower quadrant mesenteric 2.9 x 2.0 cm mass. Irregular lymph node, left ovary, or mesenteric neoplasm considered in the differential diagnosis. Consider pelvic ultrasound for further evaluation as left ovary is considered in the differential diagnosis. Follow-up recommendations will be based on findings of pelvic ultrasound. 2. Nonobstructive nephrolithiasis. 3. Hysterectomy and cholecystectomy. Electronically signed by: Mark Garcia II, D.O. Narrative 11/22/2024 3:51 PM CDT EXAMINATION: CT ABDOMEN PELVIS WO CONTRAST DATE: 11/22/2024 4:00 PM HISTORY: Renal calculus. COMPARISON: None. TECHNIQUE: Transaxial computed tomographic images of the abdomen and pelvis were obtained without contrast. Multiplanar coronal and sagittal images were reformatted. FINDINGS: Lung bases are unremarkable. Nonobstructive sub-5 mm nephroliths are noted in the right kidney. No hydroureteronephrosis. Left kidney is unremarkable. Bladder is unremarkable. Cholecystectomy. The liver, spleen, pancreas, and adrenal glands are unremarkable. No free fluid in the pelvis. Hysterectomy. Posterior superior changes noted in the rectum/distal colon. No evidence of bowel obstruction. Normal stool burden. Normal appendix. Small bowel is unremarkable. There is a nonspecific mass in the left lower quadrant mesentery measuring approximately 2.9 x 2.0 cm immediately anterior to psoas, series 2 image 160. No additional suspicious masses or lymphadenopathy. Procedure Note Mark Garcia II, - 11/22/2024 EXAMINATION: CT ABDOMEN PELVIS WO CONTRAST DATE: 11/22/2024 4:00 PM HISTORY: Renal calculus. COMPARISON: None. TECHNIQUE: Transaxial computed tomographic images of the abdomen and pelvis were obtained without contrast. Multiplanar coronal and sagittal images were reformatted. FINDINGS: Lung bases are unremarkable. Nonobstructive sub-5 mm nephroliths are noted in the right kidney. No hydroureteronephrosis. Left kidney is unremarkable. Bladder is unremarkable. Cholecystectomy. The liver, spleen, pancreas, and adrenal glands are unremarkable. No free fluid in the pelvis. Hysterectomy. Posterior superior changes noted in the rectum/distal colon. No evidence of bowel obstruction. Normal stool burden. Normal appendix. Small bowel is unremarkable. There is a nonspecific mass in the left lower quadrant mesentery measuring approximately 2.9 x 2.0 cm immediately anterior to psoas, series 2 image 160. No additional suspicious masses or lymphadenopathy. IMPRESSION: 1. Nonspecific left lower quadrant mesenteric 2.9 x 2.0 cm mass. Irregular lymph node, left ovary, or mesenteric neoplasm considered in the differential diagnosis. Consider pelvic ultrasound for further evaluation as left ovary is considered in the differential diagnosis. Follow-up recommendations will be based on findings of pelvic ultrasound. 2. Nonobstructive nephrolithiasis. 3. Hysterectomy and cholecystectomy. Electronically signed by: Mark Garcia II, D.O. Neetu MOTA IMG CT PROCEDURE S Final Result * COVID-19 POC (11/06/2024 8:31 AM CDT) COVID-19 Ag POC (BD Veritor) Presumptive Negative Presumptive Negative, Invalid [facility] Nasal 11/06/2024 8:31 AM CDT Paula Nichols NP POINT OF CARE TEST ORDERAB LES Final Result [facility] [address] [place] [address] * (ABNORMAL) Urine culture Urine, clean voided (11/06/2024 8:19 AM CDT) Report Final Report: Less than 100,000 colonies/mL (clinically insignificant growth based on current clinical standards) Includes the following: Less than 100,000 colonies/mL Streptococcus agalactiae (Group B Streptococci) * * * * * * * * * * * * * * * * * * * * Resistance to penicillin in Group B Streptococcus has not been reported. Group B Streptococci are universally susceptible to beta-lactam antibiotics and vancomycin. Routine susceptibility testing is not performed. In penicillin allergic patients, please contact the laboratory at [phone] to request susceptibility testing * * * * * * * * * * * * * * * * * * * * This laboratory routinely screens urine cultures for any amount of Group B Streptococcus in reproductive age women. Recovery of this isolate may be significant in women, however, the recovery of this organism in small quantities in non- women represents contamination with periurethral giuliana. (.) Comment:Testing performed by : [facility], [address] [place]., [address] Organism (CLINICALLY INSIGNIFICANT GROWTH [facility] Organism STREPTOCOCCUS AGALACTIAE (GROUP B STREPTOCOCCI) [facility] Urine, clean voided 11/06/2024 8:19 AM CDT 11/06/2024 8:29 PM CDT Narrative [facility] - 11/08/2024 12:01 AM CDT Testing performed by [facility] Microbiology Laboratory ([phone]) Paula Nichols NP LAB MICROBIOLOGY - GENERAL ORDERABLES Final Result [facility] [address] [facility] Department [place] [address] * (ABNORMAL) POCT urinalysis dipstick (11/06/2024 8:18 AM CDT) Color, Urine, POC Yellow Clarity, ur, POC Clear Clear Glucose, ur, POC Negative Negative Bilirubin, ur, POC Negative Negative Ketones, ur, POC Negative Negative Specific [place], POC 1.010 1.003 - 1.030 Blood, ur, POC Moderate(A) Negative pH, ur, POC 7.0 5.0 - 8.0 Protein, ur, POC Negative Negative Urobilinogen, urine, POC 0.2 0.2 - 1.0 mg/dL Nitrite, ur, POC Negative Negative Leukocytes, ur, POC Small(A) Negative Lot Number [id number] Urine 11/06/2024 8:18 AM CDT Paula Nichols NP POINT OF CARE TEST ORDERAB LES Final Result from Last 3 Months Insurance ANTHEM ACCESS ANTHEM ACCESS ANTHEM ACCESS Member Subscriber Plan / Payer ( fective 2022-) Name:Stacey Davies Relation to Subscriber:Self Name:Stacey Davies Payer ID:[id number] (NAIC) Type:[employer] Address: [address] [place] [id number] Advance Directives For more information, please contact: [phone] * Full Code (Latest Code Status on File) Date Activated Date Inactivated Comments 04/02/2022 12:22 PM 04/03/2022 6:36 PM Care Teams Depot Agent Relationship Specialty Start Date End Date Neetu Andre PA PCP - General Physician Pyridine Recovery Operator 10/29/19 Nico Lam MD Consulting Physician Neurosurgery 02/18/20
--- OUTSIDE RECORDS SUMMARY | 2024-12-28 11:56 | XMS_ITS | Patient Health Record ---
Author Organization [facility] Address [address] [place] [address] Support Name Relationship Address Phone Samson Stacey Guarantor Unknown [phone] Reason For Referral No Information Medications Medication SIG (Take, Route, Frequency, Duration) Notes Start Date End Date Status HYDROcodone-Acetaminophen 7.5-325 MG take 1 tablet by oral route every 6 hours as needed for pain Oral 4 Active Methocarbamol 750 MG take 1 tablet (750 mg) by oral route every 4 hours Oral 6 Active dilTIAZem HCl ER 240 MG take 1 capsule ( 240 mg) by oral route once daily Oral 1 Active diazePAM 10 MG take 1 tablet by ora l route 2 times a day as needed Oral 2 Active tiZANidine HCl 4 MG take 0.5 tablet by o ral route daily Oral 1 Active Problems Problem Type SNOMED Code ICD Code Onset Dates Problem Status W/U Status Risk Notes Problem Gastro-esophagea l reflux disease without esophagitis (243804152) Gastro-esophagea l reflux disease without esophagitis (K21.9) Active confirmed Problem Irritable bowel syndrome (18144383) Irritable bowel syndrome without diarrhea (K58.9) Active confirmed Problem Essential hypertension (97562474) Essential (primary) hypertension (I10) Active confirmed Plan Of Treatment No Information Insurance Providers Payer Name Payer Address Payer Phone Subscriber Number Group Number Insured Name Patient Relationship to Insured Coverage Start Date Coverage End Date Ball [address] [place] [address] [id number] Stacey Davies Self - patient is the insured 4 Medical (General) History Surgical History Surgery Date(Month/Year) hemorrhoidectomy; 2013-12-11 Ceasarean section; 2013-12-11 cholecystectomy; 2013-12-11
--- OUTSIDE RECORDS SUMMARY | 2024-12-28 11:56 | XMS_ITS | Clinical Summary ---
Author Organization [facility] Address [address] [place] [address] Care Team Providers Care Business Systems Technician Name Role Phone Neetu Andre Primary Care Provider [phone] Allergies Active Allergy Reactions Criticality Noted Date Comments Penicillins Rash Low 09/30/2008 Pravastatin Weakness Low 02/23/2016 Medications diltiaZEM (CARDIZEM CD) 300 mg Controlled Delivery 24 hour capsule TAKE 1 CAPSULE BY MOUTH EVERY DAY 1 7 Active losartan (COZAAR) 25 mg tablet TAKE 2 TABLETS BY MOUTH ONCE DAILY 0 Active melatonin 1 mg/mL Liquid Take 5 mg by mouth. Active ergocalciferol, vitamin D2, (VITAMIN D ORAL) Take 1 Tablet by mouth daily. 1000u Active ondansetron (ZOFRAN ODT) 4 mg Tablet, Rapid DissolveIndicati ons:Chronic migraine without aura without status migrainosus, not intractable Take 1 Tablet (4 mg) by mouth every 8 hours as needed for Nausea/Emesis . Dissolve tablet on top of tongue, then swallow with saliva. 20 Tablet 5 2 Active rimegepant (Nurtec ODT) 75 mg Tablet, Rapid DissolveIndicati ons:Chronic migraine without aura without status migrainosus, not intractable Take 1 Tablet (75 mg) by mouth 1 time daily as needed (migraine). 16 Tablet 6 3 Active Active Problems Problem Noted Date Diagnosed Date Benign hypertension 06/04/2016 Chronic migraine without aura 09/20/2013 Cervicalgia 01/30/2009 Herniated cervical disc 01/30/2009 Migraine without aura 07/01/2008 Episodic tension type headache 07/01/2008 Myalgia 07/01/2008 Overview (07/01/2008): Right trapezius/occipital Encounters Date Type Department Care Team Description 12/19/2024 External Device Data STL ABSTRACTION Provider, Abstract 12/13/2024 Telephone [facility] at the [facility] Medicine [address] [place] [address] Michelle Calvillo MD Needs Appointment 11/20/2024 External Device Data STL ABSTRACTION Provider, Abstract 11/20/2024 External Device Data STL ABSTRACTION Provider, Abstract 11/14/2024 8:25 AM CDT - 11/14/2024 11:59 PM CDT Hospital Encounter [facility] Imaging Services [place] [address] [place] [address] Neetu Andre PA Discharge Disposition: Home or Self Care from Last 3 Months Family History Medical History Relation Name Comments Cancer Father Edwin prostrate and s kin Ulcers Father Edwin Cancer Mother Kadi Colon Diabetes Mother Kadi due to obesity Heart Disease Mother Kadi Hypertension Mother Kadi Kidney Disease Mother Kadi renal failure Migraines Mother Kadi Breast Cancer Neg Hx Ovarian Cancer Neg Hx Relation Name Status Comments Father Edwin Mother Kadi Social History Tobacco Use Types Packs/Day Years Used Date Smoking Tobacco: Never Smokeless Tobacco: Never Alcohol Use Standard Drinks/Week Comments Yes 0 (1 standard drink = 0.6 oz pur e alcohol) rare occassions Comments No Sex and Gender Information Value Date Recorded Sex Assigned at Not on file Legal Sex Female 4:46 AM CODER Gender Identity Not on file Sexual Orientation Not on file Occupation Industry Job Start Date Job End Date Not on file Not on file Not on file Not on file Last Filed Vital Signs Vital Sign Reading Time Taken Comments Blood Pressure 112/68 09/24/2021 1:14 PM CDT Pulse 72 09/24/2021 1:14 PM CDT Temperature - - Respiratory Rate 18 06/08/2021 2:14 PM CODER Oxygen Saturation 99% 09/02/2021 1:53 PM CDT Inhaled Oxygen Concentration - - Weight 60.3 kg (133 lb) 09/24/2021 1:14 PM CDT Height 157.5 cm (5' 2) 09/24/2021 1:14 PM CDT Body Mass Index 24.33 09/24/2021 1:14 PM CDT Plan of Treatment Health Maintenance Due Date Last Done Comments DTAP/TDAP/TD VACCINES (1 - Tdap) 06/05/1994 HEPATITIS B VACCINES (1 of 3 - 19+ 3-dose series) 06/05/1994 FIT-DNA Q 3 years 06/05/2020 FIT/FOBT Q 1 year 06/05/2020 Flex Sig/CT Colonography Q 5 years 06/05/2020 BREAST CANCER SCREENING 08/25/2022 08/26/19 22, 08/07/2021, 07/01/2020, Additional history exists INFLUENZA VACCINE (#1) 2024 COVID-19 Vaccine ( - 2024-2 6 season) 2024 07/27/2020, 07/05/2020 COLORECTAL SCREENING 12/15/2030 12/15/2020, 09/30/19 19 Colorectal Cancer Screening 12/15/2030 Procedures Procedure Name Priority Date/Time Associated Diagnosis Comments XR ABDOMEN 1 VW Routine 11/14/2024 8:43 AM CDT Hematuria, unspecified MAMMO DIAG UNI LEFT 3D ELANA W OR WO CAD Routine 08/25/2021 from Last 3 Months or Most Recently Relevant to Health Maintenance Results * XR ABDOMEN 1 VW (11/14/2024 8:43 AM CDT) Anatomical Region Laterality Modality Abdomen Computed Radiogr aphy 11/14/2024 8:45 AM CDT Impressions 11/15/2024 8:42 AM CDT IMPRESSION: Small 4 and 2 mm right renal calculi. Multiple small pelvic calcifications likely phleboliths. Postcholecystectomy. Postsurgical change lower central pelvis. Narrative 11/15/2024 8:42 AM CDT EXAMINATION: XR ABDOMEN 1 VW DATE: 11/14/2024 8:43 AM. HISTORY: Microscopic hematuria. Episodes of low back pain COMPARISON: None Procedure Note Blas Batista MD - 11/15/2024 EXAMINATION: XR ABDOMEN 1 VW DATE: 11/14/2024 8:43 AM. HISTORY: Microscopic hematuria. Episodes of low back pain COMPARISON: None IMPRESSION: Small 4 and 2 mm right renal calculi. Multiple small pelvic calcifications likely phleboliths. Postcholecystectomy. Postsurgical change lower central pelvis. Neetu MOTA DIAGNOSTIC IMAGING ORDERABLES Final Result * MAMMO DIAG UNI LEFT 3D ELANA W OR WO CAD (08/25/2021) Anatomical Region Laterality Modality Breast Left Mammography Abstract Provider MAMMO ORDERABLES Edited Result - Final from Last 3 Months or Most Recently Relevant to Health Maintenance Insurance RX [facility] [employer] PL[employer] (INTERNAL) [facility] Plans BCBS BLUE ACCESS/TRUE BLUE PPO Care Teams Business Systems Technician Relationship Specialty Start Date End Date Neetu Andre PA PCP - General Physician Pole Truck Driver 12/13/18
== END 2024-12-28 11:54 | disposition home or self-care (01) ==
PROVIDERS: PCP Physician Assistant; Visit Provider Obstetrics & Gynecology Gynecology
DX: Z12.31 Encounter for screening mammogram for malignant neoplasm of breast (principal); R92.8 Other abnormal and inconclusive findings on diagnostic imaging of breast
CPT/HCPCS: 77063; 77067

== ENCOUNTER 2025-01-18 09:37 | Outpatient (CLI) | payer BC, SELFPAY ==
--- NOTE | ~2025-01-18 | MMUS_ITS ---
EXAMINATION: US breast RT limited, MM diagnostic marisela RT w brandt HISTORY: Inclusive mammogram TECHNIQUE: Additional images of the right breast]] were performed using full field digital mammography. 3-D tomosynthesis were also obtained and synthetic 2- D images were generated. CAD analysis was submitted and interpreted. High- resolution right breast ultrasound was performed.] ] COMPARISON: Mammograms from 12/28/2024, 12/13/2023 and 08/10/2022 BREAST PARENCHYMAL COMPOSITION: EXAMINATION: EXAMINATION: The breasts are heterogeneously dense, which may obscure small masses. FINDINGS: MAMMOGRAPHIC FINDINGS: Focal asymmetry in the upper-outer quadrant of the right breast, middle depth. No convincing sonographic correlate. Grouping of coarse heterogeneous calcifications in the upper outer quadrant of the right breast, middle depth. The calcifications are suspicious. ULTRASOUND: There is a 5 x 3 x 3 mm hypoechoic cyst versus solid mass in the right breast at 9:00 position 1 cm from the nipple. The finding is wider than tall. No internal color Doppler flow. No posterior acoustic shadowing. There is a 1.4 x 0.4 x 1.0 cm hypoechoic cyst versus solid mass in the right breast at the 10:00 position 3 cm from the nipple. The finding is wider than tall. Margins are well-circumscribed. No internal color flow. No posterior acoustic shadowing. IMPRESSION/RECOMMENDATION: 1. Grouping of coarse heterogeneous calcifications in the upper outer quadrant of the right breast, middle depth. The calcifications are suspicious. 2. Probably benign findings in the right breast. A diagnostic right breast mammogram and a diagnostic right breast ultrasound in 6 months is recommended. Protocol insures that results of the study are called and/or faxed to the referring clinician's office and documented in the patient's chart per critical findings protocol. Reviewed, dictated and finalized at location Q. IMPRESSION/RECOMMENDATION: 1. Grouping of coarse heterogeneous calcifications in the upper outer quadrant of the right breast, middle depth. The calcifications are suspicious. 2. Probably benign findings in the right breast. A diagnostic right breast mamm ogram and a diagnostic right breast ultrasound in 6 months is recommended. Protocol insures that results of the study are called and/or faxed to the refer ring clinician's office and documented in the patient's chart per critical find ings protocol. IMPRESSION/RECOMMENDATION: 1. Grouping of coarse heterogeneous calcifications in the upper outer quadrant of the right breast, middle depth. The calcifications are suspicious. 2. Probably benign findings in the right breast. A diagnostic right breast mamm ogram and a diagnostic right breast ultrasound in 6 months is recommended. Protocol insures that results of the study are called and/or faxed to the refer ring clinician's office and documented in the patient's chart per critical find ings protocol.
--- OUTSIDE RECORDS SUMMARY | 2025-01-18 10:06 | XMS_ITS | Clinical Summary ---
Author Organization [facility] Address [address] [place] [address] Care Team Providers Care Collection Agent Name Role Phone Neetu Andre Primary Care Provider [phone] Allergies Active Allergy Reactions Criticality Noted Date [...] Data STL ABSTRACTION Provider, Abstract 12/13/2024 Telephone [facility] Urology at the [facility] Medicine [address] [place] [address] Michelle Calvillo MD Needs Appointment 11/20/2024 External Device Data STL ABSTRACTION Provider, Abstract 11/20/2024 External Device Data STL ABSTRACTION Provider, Abstract 11/14/2024 8:25 AM CDT - 11/14/2024 11:59 PM CDT Hospital Encounter [facility] Imaging Services [place] [address] [place] [address] Neetu Andre PA Discharge Disposition: Home or [...] on file Legal Sex Female 4:46 AM SWITCHBOARD TROUBLESHOOTER Gender Identity Not on file Sexual Orientation Not on file Occupation Industry Job Start Date Job End Date Not on file Not on file Not on file Not on file Last Filed Vital Signs Vital Sign Reading Time Taken Comments Blood Pressure 112/68 09/24/2021 1:14 PM CDT Pulse 72 09/24/2021 1:14 PM CDT Temperature - - Respiratory Rate 18 06/08/2021 2:14 PM SWITCHBOARD TROUBLESHOOTER Oxygen Saturation 99% 09/02/2021 1:53 PM CDT [...] BCBS BLUE ACCESS/TRUE BLUE PPO Care Teams Collection Agent Relationship Specialty Start Date End Date Neetu Andre PA PCP - General Physician Animal Cruelty Investigator 12/13/18
--- OUTSIDE RECORDS SUMMARY | 2025-01-18 10:06 | XMS_ITS | Patient Health Record ---
Author Organization [facility] Address [address] [place] [address] Support Name Relationship Address Phone Stacey Davies Guarantor Unknown [phone] Reason For Referral No Information Medications Medication [...] Problem Gastro-esophagea l reflux disease without esophagitis (733462666) Gastro-esophagea l reflux disease without esophagitis (K21.9) Active confirmed Problem Irritable bowel syndrome (15951691) Irritable bowel syndrome without diarrhea (K58.9) Active confirmed Problem Essential hypertension (95329725) Essential (primary) hypertension (I10) Active confirmed Plan Of Treatment No Information Insurance Providers Payer Name Payer Address Payer Phone Subscriber Number Group Number Insured Name Patient Relationship to Insured Coverage Start Date Coverage End Date Otho [address] [place] [address] [phone] [id number] Stacey Davies Self - patient is the insured 4 Medical (General) History Surgical History Surgery Date(Month/Year) hemorrhoidectomy; 2013-12-11 Ceasarean section; 2013-12-11 cholecystectomy; 2013-12-11
--- OUTSIDE RECORDS SUMMARY | 2025-01-18 10:06 | XMS_ITS | Encounter Summary ---
Author Organization [facility] Address [address] [place] [address] Care Team Providers Care Metal Mine Inspector Name Role Phone Neetu Andre Primary Care Provider [phone] Encounter Details Date Type Department Care Team (Late st Contact Info) Description 10/19/2005 Outpatient [facility] [id number] [place] [address] [address] [place] [address] Shivam Farnsworth (Two) Social History Tobacco Use Types Packs/Day Years Used Date Smoking Tobacco: Never Assessed Comments Unknown Sex and Gender Information Value Date Recorded Sex Assigned at Not on file Legal Sex Female 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
--- OUTSIDE RECORDS SUMMARY | 2025-01-18 10:06 | XMS_ITS | Clinical Summary ---
Author Organization [facility] Address [address] [place] [address] Care Team Providers Care Antichecking Iron Worker Name Role Phone JesNeetu Primary Care Pr ovider Nico Lam MD Unavailable [phone] Allergies Active Allergy Reactions Criticality Noted [...] (12/23/2021): Added automatically from request for surgery [id number] Pseudoarthrosis of cervical spine 10/07/2021 Assessment & [...] (12/19/2019): Added automatically from request for surgery [id number] Assessment & Plan (02/05/2021 2:41 PM CDT): [...] time. Assessment & Plan (03/25/2020 1:45 PM GOAT FARMER): PLAN: - Start physical therapy/aqua therapy/home exercise [...] - 12/04/2024 11:59 PM CDT Hospital Encounter [facility] ` [address] [place] [address] Other specified conditions associated with female genital organs and menstrual cycle Discharge Disposition: Discharge to home or self care 11/22/2024 3:29 PM CDT - 11/22/2024 11:59 PM CDT Hospital Encounter [facility] Imaging and Radiology [address] [place] [address] Calculus of kidney Discharge Disposition: Discharge to home or self care 11/07/2024 Results Follow-Up [facility] at [place] [address] [place] [phone] Arina Morin NP Urine culture Urine, clean voided 11/06/2024 8:19 AM CDT - 11/06/2024 11:59 PM CDT Hospital Encounter [address] [address] Body aches Discharge Disposition: Discharge to home or self care 11/06/2024 8:15 AM CDT Office Visit [facility] [place] [address] [phone] Nichols, Paula F., CASE WORKER Body aches (Primary Dx); Acute cystitis with hematuria from Last 3 Months Immunizations Immunization Administration Dates Next Due Pfizer SARS-CoV-2 Monovalent Vaccination (12+ Yrs) PURPLE 07/27/2020,07/05/2020 Surgical History Surgery Date Site/Laterality Comments ID HEMORRHOIDECTOMY INTERNAL RUBBER BAND LIGATIONS 04/04/2000 - [...] on file Legal Sex Female 9:44 PM GOAT FARMER Gender Identity Not on file Sexual Orientation [...] this topic Medical Devices Implanted Type Area Supervisor Finishing Room Device Identifier Shelf Expiration Date Model / Serial / Lot Unknown Neck [employer] 700-025 I Factor Allograft Putty Syringe Graft 2.5cc Bone - [id number] Implanted:Qty : 1 on 02/18/2020 by Nico Lam MD at [facility] N/A: Spine Cervical [employer] Inc [id number] 12/02/2022 700-025 / / [id number] Cage [facility] 3d Cervical 14.0x59x9er 7 Deg - [id number] Implanted:Qty : 1 on 02/18/2020 by Nico Lam MD at [facility] N/A: Spine Cervical Core Link [id number] 03/20/2024 [id number] / / [id number] [employer] 3d Cervical 14.4s03g8ad 7 Deg - [id number] Implanted:Qty : 1 on 02/18/2020 by Nico Lam MD at [facility] N/A: Spine Cervical Core Link [id number] 01/10/2024 [id number] / / [id number] Core Link Anodyne 30mm Level 2 Spine Cervical Anterior Plate Bone - [id number] Implanted:Qty : 1 on 02/18/2020 by iNco Lam MD at [facility] N/A: Spine Cervical Core Link / / Core Link Anodyne 4mm 14mm Variable Angle Self Tap Spine Cervical Screw - [id number] Implanted:Qty : 6 on 02/18/2020 by Nico Lam MD at [facility] N/A: Spine Cervical Core Link / / Depuy Synthes Spine 3.5mm 12mm Ply Spine Screw Bone Nonsterile 4mm Eduard [id number] - [id number] Implanted:Qty : 3 on 04/02/2022 by Yony Vargas MD at [facility] N/A: Spine Cervical Depuy Synthes Spine [id number] / / Depuy Synthes Spine 4.5mm 24mm Ply Spine Pedicle Screw Bone Nonsterile 4mm Eduard [id number] - [id number] Implanted:Qty : 2 on 04/02/2022 by Yony Vargas MD at [facility] N/A: Spine Cervical Depuy Synthes Spine [id number] / / Depuy Synthes Spine Lock Cap Spine T15 Standard Screw Set Titanium Nonsterile [id number] - [id number] Implanted:Qty : 9 on 04/02/2022 by Yony Vargas MD at [facility] N/A: Spine Cervical Depuy Synthes Spine [id number] / / Depuy Synthes Spine 4mm 70mm Lordosis Eduard Spinal Titanium [id number] - [id number] Implanted:Qty : 1 on 04/02/2022 by Yony Vargas MD at [facility] N/A: Spine Cervical Depuy Synthes Spine [id number] / / Depuy Synthes Spine 4mm 75mm Lordosis Eduard Spinal Titanium [id number] - [id number] Implanted:Qty : 1 on 04/02/2022 by Yony Vargas MD at [facility] N/A: Spine Cervical Depuy Synthes Spine [id number] / / Depuy Synthes Spine Substitute Bone Graft Fibergraft Medium Spine Ossiglide [id number] - [id number] Implanted:Qty : 1 on 04/02/2022 by Yony Vargas MD at [facility] N/A: Spine Cervical Depuy Synthes Spine 06/20/2023 [id number] / / [id number] Depuy Synthes Spine 3.5mm 14mm Ply Spine Screw Bone Nonsterile 4mm Eduard [id number] - [id number] Implanted:Qty : 1 on 04/02/2022 by Yony Vargas MD at [facility] N/A: Spine Cervical Depuy Synthes Spine [id number] / / Depuy Synthes Spine 3.5mm 16mm Ply Spine Screw Bone Nonsterile 4mm Eduard [id number] - [id number] Implanted:Qty : 3 on 04/02/2022 by Yony Vargas MD at [facility] N/A: Spine Cervical Depuy Synthes Spine [id number] / / Procedures Procedure Name Priority Date/Time [...] pelvis. Electronically signed by: Theresa Nunez M.D. [facility] 12/04/2024 6:01 PM CDT EXAMINATION: US PELVIS [...] Hysterectomy and cholecystectomy. Electronically signed by: Mark Garcai II, D.O. Narrative 11/22/2024 3:51 PM CDT [...] (BD Veritor) Presumptive Negative Presumptive Negative, Invalid [facility] Nasal 11/06/2024 8:31 AM CDT Paula Nichols NP POINT OF CARE TEST ORDERAB LES Final Result [facility] [address] [place] [address] * (ABNORMAL) Urine culture Urine, clean voided [...] allergic patients, please contact the laboratory at [phone] to request susceptibility testing * * * [...] periurethral giuliana. (.) Comment:Testing performed by : [facility], [address] [place]., [address] Organism (CLINICALLY INSIGNIFICANT GROWTH [facility] Organism STREPTOCOCCUS AGALACTIAE (GROUP B STREPTOCOCCI) [facility] Urine, clean voided 11/06/2024 8:19 AM CDT 11/06/2024 8:29 PM CDT Narrative [facility] - 11/08/2024 12:01 AM CDT Testing performed by [facility] Microbiology Laboratory ([phone]) Paula Nichols NP LAB MICROBIOLOGY - GENERAL ORDERABLES Final Result [facility] [address] [facility] Department [place] [address] * (ABNORMAL) POCT urinalysis dipstick (11/06/2024 8:18 AM CDT) Color, Urine, POC Yellow Clarity, ur, POC Clear Clear Glucose, ur, POC Negative Negative Bilirubin, ur, POC Negative Negative Ketones, ur, POC Negative Negative Specific Randolph, POC 1.010 1.003 - 1.030 Blood, ur, POC Moderate(A) Negative pH, ur, POC 7.0 5.0 - 8.0 Protein, ur, POC Negative Negative Urobilinogen, urine, POC 0.2 0.2 - 1.0 mg/dL Nitrite, ur, POC Negative Negative Leukocytes, ur, POC Small(A) Negative Lot Number [id number] Urine 11/06/2024 8:18 AM CDT Paula Nichols NP POINT OF CARE TEST ORDERAB LES Final Result from Last 3 Months Insurance ANTHEM ACCESS ANTHEM ACCESS ANTHEM ACCESS Member Subscriber Plan / Payer ( fective 2022-) Name:Stacey Davies Relation to Subscriber:Self Name:Stacey Davies Payer ID:[id number] (NAIC) Type:BC ALLIANCE Address: [address] [place] [id number] Advance Directives For more information, please contact: [phone] * Full Code (Latest Code Status on File) Date Activated Date Inactivated Comments 04/02/2022 12:22 PM 04/03/2022 6:36 PM Care Teams Antichecking Iron Worker Relationship Specialty Start Date End Date Neetu Andre PA PCP - General Physician Care Navigator 10/29/19 Nico Lam MD Consulting Physician Neurosurgery 02/18/20
--- OUTSIDE RECORDS SUMMARY | 2025-01-18 10:06 | XMS_ITS | Patient Health Record ---
Author Organization [facility] [place] Address [address] [facility] [address] [place], [place] [address] Care Team Providers Care Meat Grinder Name Role Phone RYAN OSPINA Primary Care Provider Timothy chelo JessicaMargaret whitney Unavailable [phone] REASON FOR REFERRAL No Information MEDICATIONS Medication SIG (Take, Route, Frequency, Duration) Notes Start Date End Date Status [place] Active Amrix 15 mg 1 cap(s) orally [...] Code Notes Problem Cervicalgia (M54.2) Active confirmed 88619509 Problem Left shoulder pain (M25.512) Active confirmed 13895054 Problem Myalgia (M79.1) Active confirmed 923360 01 Problem Skin rash (R21) Active confirmed 461163 003 Problem Sacroiliac pain (M53.3) Active confirmed Sacroiliac joint pain (438080379) Problem Non-smoker (Z78.9) Active confirmed 4396843 Problem Other ad terminal makeup operator (current) drug therapy (Z79.899) Active confirmed 545219281 Problem Dry eyes (H04.123) Active confirmed Dry eyes (160140453) PLAN OF TREATMENT Pending Test Test Name [...] End Date ALLIANCE PPO - NR [address] [place] [address] [id number] Stacey Davies Self - patient is the [...] section 2000 hemorrhoidectomy 2005 gallbladder surgery 2004 [place] teeth 1995
--- OUTSIDE RECORDS SUMMARY | 2025-01-18 10:06 | XMS_ITS | Data Portability ---
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 No acute concerns and all acceptable ranges Mammogram up-to-date due again in December Pap smear up-to-date Colonoscopy due December 2025 Not available 08/31/2024 15:57:26 Plan of Treatment Reminders Order Date Submit Date Provider Last Modified By Organization Details Last Modified Time Details Appointments ANY 15 2025 02:30P NAKUL Perrin Not available Not available Not available Lab influenza virus A + B + SARS-CoV- 2 (COVID19) Ag panel, rapid IA, upper respirato ry specimen 2024 025 [email or web address] In-Office Order, Internal Use Only DO Not Attach Compendium DO Not Attach Compendium, Do Not Delete/merge, [id number] 05/10/2024 14:52:04 TSH + free T4, serum 2023 025 [facility], [address], [place], [address], 08/21/2024 07:09:59 vitamin B12 + folate, serum or blood 2023 025 [facility], [address] [facility] [address], [place], [address], 08/21/2024 07:10:03 CBC w/ auto diff 2023 025 [facility], [address] [facility], [facility], [place], [address], 08/21/2024 07:10:06 CMP, serum or plasma 2023 025 [facility], [address] [facility], [facility] [address], [place], [address], 08/21/2024 07:10:02 lipid panel, serum 2023 025 [facility], [address] [facility], [facility] [address], [place], [address], 08/21/2024 07:10:00 HbA1c (hemoglob in A1c), blood 2023 025 [facility], [facility], [facility] [address], [place], [address], 08/21/2024 07:10:05 TSH + free T4, serum 2023 024 [facility], [address] [facility], [facility] [address], [place], [address], 09/01/2023 13:10:25 insulin, serum 2023 024 [facility], [facility], [facility] [address], [place], [address], 09/01/2023 13:10:29 T3, free, serum or plasma 2023 024 [facility], [address] [facility], [facility] [address], [place], [address], 09/01/2023 13:10:31 thyroid peroxidas e (tpo) Ab, serum 2023 024 [facility], [address] [facility], [facility] [address], [place], [address], 09/01/2023 13:10:30 lipid panel, serum 2023 024 [facility], [address] [facility], [facility] [address], [place], [address], 09/01/2023 13:10:25 vitamin B12 + folate, serum or blood 2023 024 [facility], [address] [place] [address], [facility] [address], [place], [address], 09/01/2023 13:10:27 CBC w/ auto diff 2023 024 [facility], [address] [place] [address], [facility] [address], [place], [address], 09/01/2023 13:10:29 CMP, serum or plasma 2023 024 [facility], [address] [place] [address], [facility] [address], [place], [address], 09/01/2023 13:10:26 HbA1c (hemoglob in A1c), blood 2023 024 [facility], [address] [place] [address], [facility] [address], [place], [address], 09/01/2023 13:10:28 Referral None recorded. Procedures None recorded. Surgeries None recorded. Imaging XR, hip, unilatera l 2023 024 [facility], [facility], [facility] [address], [place], [address], 01/03/2024 14:16:27 XR, foot, 3 or more view 2023 024 [facility], [facility], [address], [place], [address], 01/03/2024 14:15:05 PFT, complete - with and without bronchodi lators. 2023 024 [facility]), [address], [place], [address], 09/13/2023 17:54:38 Medication Orders Virtussin AC 10 mg-100 mg/5 mL oral liquid 2024 [id number], [address] [place], [id number], 08/31/2024 14:15:27 Wegovy 1 mg/0.5 mL subcutane ous pen injector 2023 024 [email or web address] #[id number], [address], [place], [place], [id number], 02/17/2024 14:22:17 diltiazem CD 300 mg capsule,e xtended release 24 hr 2023 024 [facility] #[id number], [address], [place], [place], [id number], 02/17/2024 14:22:21 diclofena c sodium 75 mg tablet,de layed release 2023 024 [facility] #[id number], [address], [place], [place], [id number], 02/17/2024 14:22:29 Wegovy 0.25 mg/0.5 mL subcutane ous pen injector 2023 024 [facility] #[id number], [address] [place], [address], 01/03/2024 12:25:45 Patient TargetsNo targets recorded. Patient Instructions Encounter Date Encounter Id Patient Instructions Last Modified By Organization Details Last Modified Time 05/10/2024 [id number] A healthy lifestyle: care instructions Not available 05/10/2024 14:41:25 Reason for Referral None Reported. Results Created Date Observation Date Name Description Value Unit Range Abnormal Flag Note LastModifiedBy Organization Detail LastModifiedTime 08/31/19 24 09/01/2023 LIPID PANEL W/ CHOL/ HDL RATIO cholesterol, total 216 mg/dL 100-19 9 above high normal Not Available [facility] ([facility]) [address] [place], [address], 09/01/2023 13:10:24 08/31/19 24 09/01/2023 LIPID PANEL W/ CHOL/ HDL RATIO triglyceride s 145 mg/dL 0-149 Not Available [facility] ([facility]) [address] [place], [address], 09/01/2023 13:10:24 08/31/19 24 09/01/2023 LIPID PANEL W/ CHOL/ HDL RATIO HDL cholesterol 62 mg/dL >39 Not Available [facility] ([facility]) [address] [place], [address], 09/01/2023 13:10:24 08/31/19 24 09/01/2023 LIPID PANEL W/ CHOL/ HDL RATIO VLDL cholesterol carroll 26 mg/dL 5-40 Not Available [facility] ([facility]) [address] [place], [address], 09/01/2023 13:10:24 08/31/19 24 09/01/2023 LIPID PANEL W/ CHOL/ HDL RATIO LDL chol calc ([facility]) 128 mg/dL 0-99 above high normal Not Available [facility] ([facility]) [address] [place], [address], 09/01/2023 13:10:24 08/31/19 24 09/01/2023 LIPID PANEL W/ CHOL/ HDL RATIO T. chol/HDL ratio 3.5 ratio 0.0-4. 4 T. Chol/ HDL Ratio Men Women 1/2 Avg.R isk 3.4 3.3 Avg.R isk 5.0 4.4 2X Avg.R isk 9.6 7.1 3X Avg.R isk 23.4 11.0 Not Available [facility] ([facility]) [address] [place], [address], 09/01/2023 13:10:24 08/31/19 24 09/01/2023 TSH+F REE T4 TSH 1.580 uIU/m L 0.450- 4.500 Not Available [facility] ([facility]) [address] [facility] [place], [address], 09/01/2023 13:10:25 08/31/19 24 09/01/2023 TSH+F REE T4 T4,free(dire ct) 1.03 NG/dL 0.82-1 .77 Not Available [facility] ([facility]) [address] [facility] [place], [address], 09/01/2023 13:10:25 08/31/19 24 09/01/2023 COMP. METAB OLIC PANEL (14) glucose 90 mg/dL 70-99 Not Available [facility] ([facility]) [address] [facility] [place], [address], 09/01/2023 13:10:26 08/31/19 24 09/01/2023 COMP. METAB OLIC PANEL (14) BUN 12 mg/dL 6-24 Not Available [facility] ([facility]) [address] [facility] [place], [address], 09/01/2023 13:10:26 08/31/19 24 09/01/2023 COMP. METAB OLIC PANEL (14) creatinine 0.89 mg/dL 0.57-1 .00 Not Available [facility] ([facility]) [address] [facility] [place], [address], 09/01/2023 13:10:26 08/31/19 24 09/01/2023 COMP. METAB OLIC PANEL (14) eGFR 80 mL/mi n/1.7 3 >59 Not Available [facility] ([facility]) [address] [place] [place], [address], 09/01/2023 13:10:26 08/31/19 24 09/01/2023 COMP. METAB OLIC PANEL (14) BUN/creatini ne ratio 13 9-23 Not Available [facility] ([facility]) [address] [facility] [place], [address], 09/01/2023 13:10:26 08/31/19 24 09/01/2023 COMP. METAB OLIC PANEL (14) sodium 140 mmol/ L 134-14 4 Not Available [facility] ([facility]) [address] [facility], [place], [address], 09/01/2023 13:10:26 08/31/19 24 09/01/2023 COMP. METAB OLIC PANEL (14) potassium 4.8 mmol/ L 3.5-5. 2 Not Available [facility] ([facility]) [address] [facility], [place], [address], 09/01/2023 13:10:26 08/31/19 24 09/01/2023 COMP. METAB OLIC PANEL (14) chloride 104 mmol/ L 96-106 Not Available [facility] ([facility]) [address] [place], [address], 09/01/2023 13:10:26 08/31/19 24 09/01/2023 COMP. METAB OLIC PANEL (14) carbon dioxide, total 23 mmol/ L 20-29 Not Available [facility] ([facility]) [address] [facility], [place], [address], 09/01/2023 13:10:26 08/31/19 24 09/01/2023 COMP. METAB OLIC PANEL (14) calcium 9.5 mg/dL 8.7-10 .2 Not Available [facility] ([facility]) [address] [place], [address], 09/01/2023 13:10:26 08/31/19 24 09/01/2023 COMP. METAB OLIC PANEL (14) protein, total 6.8 g/dL 6.0-8. 5 Not Available [facility] ([facility]) [address] [facility], [place], [address], 09/01/2023 13:10:26 08/31/19 24 09/01/2023 COMP. METAB OLIC PANEL (14) albumin 4.4 g/dL 3.9-4. 9 Not Available [facility] ([facility]) [address] [facility], [place], [address], 09/01/2023 13:10:26 08/31/19 24 09/01/2023 COMP. METAB OLIC PANEL (14) globulin, total 2.4 g/dL 1.5-4. 5 Not Available [facility] ([facility]) [address] [facility], [place], [address], 09/01/2023 13:10:26 08/31/19 24 09/01/2023 COMP. METAB OLIC PANEL (14) A/G ratio 1.8 1.2-2. 2 Not Available [facility] ([facility]) [address] [facility], [place], [address], 09/01/2023 13:10:26 08/31/19 24 09/01/2023 COMP. METAB OLIC PANEL (14) bilirubin, total 0.3 mg/dL 0.0-1. 2 Not Available [facility] ([facility]) [address] [facility], [place], [address], 09/01/2023 13:10:26 08/31/19 24 09/01/2023 COMP. METAB OLIC PANEL (14) alkaline phosphatase 49 IU/L 44-121 Not Available [facility] ([facility]) [address] [facility], [place], [address], 09/01/2023 13:10:26 08/31/19 24 09/01/2023 COMP. METAB OLIC PANEL (14) AST (SGOT) 20 IU/L 0-40 Not Available [facility] ([facility]) [address] [place], [address], 09/01/2023 13:10:26 08/31/19 24 09/01/2023 COMP. METAB OLIC PANEL (14) ALT (SGPT) 21 IU/L 0-32 Not Available [facility] ([facility]) [address] [facility] [place], [address], 09/01/2023 13:10:26 08/31/19 24 09/01/2023 VITAM IN B12 AND FOLAT E vitamin B12 545 pg/mL 232-12 45 Not Available [facility] ([facility]) [address] [place], [address], 09/01/2023 13:10:27 08/31/19 24 09/01/2023 VITAM IN B12 AND FOLAT E folate (folic acid), serum 10.3 NG/mL >3.0 A serum folat e marco a ntrat ion of less than 3.1 ng/mL is consi dered to repre sent clini carroll defic iency . Not Available [facility] ([facility]) [address] [place] [place], [address], 09/01/2023 13:10:27 08/31/19 24 09/01/2023 HEMOG LOBIN A1C hemoglobin A1C 5.4 % 4.8-5. 6 Predi abete s: 5.7 - 6.4 Diabe aniket: >6.4 Glyce anne contr ol for adult s with diabe aniket: <7.0 Not Available [facility] ([facility]) [address] [facility] [place], [address], 09/01/2023 13:10:28 08/31/19 24 09/01/2023 INSUL IN insulin 4.8 uIU/m L 2.6-24 .9 Not Available [facility] ([facility]) [address] [facility] [place], [address], 09/01/2023 13:10:28 08/31/19 24 09/01/2023 CBC WITH DIFFE RENTI AL/PL ATELE T WBC 6.7 x10e3 /uL 3.4-10 .8 Not Available [facility] ([facility]) [address] [facility], [place], [address], 09/01/2023 13:10:29 08/31/19 24 09/01/2023 CBC WITH DIFFE RENTI AL/PL ATELE T RBC 4.53 x10e6 /uL 3.77-5 .28 Not Available [facility] ([facility]) [address] [facility], [place], [address], 09/01/2023 13:10:29 08/31/19 24 09/01/2023 CBC WITH DIFFE RENTI AL/PL ATELE T hemoglobin 13.5 g/dL 11.1-1 5.9 Not Available [facility] ([facility]) [address] [facility], [place], [address], 09/01/2023 13:10:29 08/31/19 24 09/01/2023 CBC WITH DIFFE RENTI AL/PL ATELE T hematocrit 41.7 % 34.0-4 6.6 Not Available [facility] ([facility]) [address] [facility], [place], [address], 09/01/2023 13:10:29 08/31/19 24 09/01/2023 CBC WITH DIFFE RENTI AL/PL ATELE T MCV 92 fL 79-97 Not Available [facility] ([facility]) [address] [facility], [place], [address], 09/01/2023 13:10:29 08/31/19 24 09/01/2023 CBC WITH DIFFE RENTI AL/PL ATELE T MCH 29.8 pg 26.6-3 3.0 Not Available [facility] ([facility]) [address] [facility], [place], [address], 09/01/2023 13:10:29 08/31/19 24 09/01/2023 CBC WITH DIFFE RENTI AL/PL ATELE T MCHC 32.4 g/dL 31.5-3 5.7 Not Available [facility] ([facility]) [address] [facility], [place], [address], 09/01/2023 13:10:29 08/31/19 24 09/01/2023 CBC WITH DIFFE RENTI AL/PL ATELE T RDW 12.8 % 11.7-1 5.4 Not Available [facility] ([facility]) [address] [facility], [place], [address], 09/01/2023 13:10:29 08/31/19 24 09/01/2023 CBC WITH DIFFE RENTI AL/PL ATELE T platelets 265 x10e3 /uL 150-45 0 Not Available [facility] ([facility]) [address] [facility], [place], [address], 09/01/2023 13:10:29 08/31/19 24 09/01/2023 CBC WITH DIFFE RENTI AL/PL ATELE T neutrophils 67 % notest ab. Not Available [facility] ([facility]) [address] [facility], [place], [address], 09/01/2023 13:10:29 08/31/19 24 09/01/2023 CBC WITH DIFFE RENTI AL/PL ATELE T lymphs 23 % notest ab. Not Available [facility] ([facility]) [address] [facility], [place], [address], 09/01/2023 13:10:29 08/31/19 24 09/01/2023 CBC WITH DIFFE RENTI AL/PL ATELE T monocytes 7 % notest ab. Not Available [facility] ([facility]) [address] [facility], [place], [address], 09/01/2023 13:10:29 08/31/19 24 09/01/2023 CBC WITH DIFFE RENTI AL/PL ATELE T eos 2 % notest ab. Not Available [facility] ([facility]) [address] [facility], [place], [address], 09/01/2023 13:10:29 08/31/19 24 09/01/2023 CBC WITH DIFFE RENTI AL/PL ATELE T basos 1 % notest ab. Not Available [facility] ([facility]) [address] [facility], [place], [address], 09/01/2023 13:10:29 08/31/19 24 09/01/2023 CBC WITH DIFFE RENTI AL/PL ATELE T neutrophils (absolute) 4.5 x10e3 /uL 1.4-7. 0 Not Available [facility] ([facility]) [address] [facility], [place], [address], 09/01/2023 13:10:29 08/31/19 24 09/01/2023 CBC WITH DIFFE RENTI AL/PL ATELE T lymphs (absolute) 1.6 x10e3 /uL 0.7-3. 1 Not Available [facility] ([facility]) [address] [facility], [place], [address], 09/01/2023 13:10:29 08/31/19 24 09/01/2023 CBC WITH DIFFE RENTI AL/PL ATELE T monocytes(ab solute) 0.5 x10e3 /uL 0.1-0. 9 Not Available [facility] ([facility]) [address] [facility], [place], [address], 09/01/2023 13:10:29 08/31/19 24 09/01/2023 CBC WITH DIFFE RENTI AL/PL ATELE T eos (absolute) 0.2 x10e3 /uL 0.0-0. 4 Not Available [facility] ([facility]) [address] [facility], [place], [address], 09/01/2023 13:10:29 08/31/19 24 09/01/2023 CBC WITH DIFFE RENTI AL/PL ATELE T baso (absolute) 0.1 x10e3 /uL 0.0-0. 2 Not Available [facility] ([facility]) [address] [place], [address], 09/01/2023 13:10:29 08/31/19 24 09/01/2023 CBC WITH DIFFE RENTI AL/PL ATELE T immature granulocytes 0 % notest ab. Not Available [facility] ([facility]) [address] [place], [address], 09/01/2023 13:10:29 08/31/19 24 09/01/2023 CBC WITH DIFFE RENTI AL/PL ATELE T immature grans (abs) 0.0 x10e3 /uL 0.0-0. 1 Not Available [facility] ([facility]) [address] [facility], [place], [address], 09/01/2023 13:10:29 08/31/19 24 09/01/2023 THYRO ID PEROX IDASE (TPO) AB thyroid peroxidase (tpo) Ab 16 IU/mL 0-34 Not Available [facility] ([facility]) [address] [facility], [place], [address], 09/01/2023 13:10:30 08/31/19 24 09/01/2023 TRIIO DOTHY FRANCO E (T3), FREE triiodothyro nine (T3), free 3.0 pg/mL 2.0-4. 4 Not Available [facility] ([facility]) [address] [place], [address], 09/01/2023 13:10:31 05/10/19 25 05/10/2024 influ sharita virus A + B + SARS- CoV-2 (COVI D19) Ag panel , rapid IA, upper respi rator y speci men Flu A negati ve Not Available In-Office Order Internal Use Only DO Not Attach Compendium DO Not Attach Compendium, Do Not Delete/merge, [id number] 05/10/2024 14:51:56 05/10/19 25 05/10/2024 influ sharita virus A + B + SARS- CoV-2 (COVI D19) Ag panel , rapid IA, upper respi rator y speci men Flu B negati ve Not Available In-Office Order Internal Use Only DO Not Attach Compendium DO Not Attach Compendium, Do Not Delete/merge, [id number] 05/10/2024 14:51:56 05/10/19 25 05/10/2024 influ sharita virus A + B + SARS- CoV-2 (COVI D19) Ag panel , rapid IA, upper respi rator y speci men Rapid SARS CoV 2 Ag, QL IA, respiratory specimen negati ve Not Available In-Office Order Internal Use Only DO Not Attach Compendium DO Not Attach Compendium, Do Not Delete/merge, [id number] 05/10/2024 14:51:56 08/21/19 25 08/21/2024 TSH+F REE T4 TSH 1.710 uIU/m L 0.450- 4.500 Not Available [facility] ([facility]) [address] [place], [address], 08/21/2024 07:09:59 08/21/19 25 08/21/2024 TSH+F REE T4 T4,free(dire ct) 1.04 NG/dL 0.82-1 .77 Not Available [facility] ([facility]) [address] [place], [address], 08/21/2024 07:09:59 08/21/19 25 08/21/2024 LIPID PANEL cholesterol, total 206 mg/dL 100-19 9 above high normal Not Available [facility] ([facility]) [address] [place], [address], 08/21/2024 07:10:00 08/21/19 25 08/21/2024 LIPID PANEL triglyceride s 100 mg/dL 0-149 Not Available [facility] ([facility]) [address] [place], [address], 08/21/2024 07:10:00 08/21/19 25 08/21/2024 LIPID PANEL HDL cholesterol 62 mg/dL >39 Not Available [facility]) [address] [place], [address], 08/21/2024 07:10:00 08/21/19 25 08/21/2024 LIPID PANEL VLDL cholesterol carroll 18 mg/dL 5-40 Not Available [facility] ([facility]) [address] [place], [address], 08/21/2024 07:10:00 08/21/19 25 08/21/2024 LIPID PANEL LDL chol calc ([facility]) 126 mg/dL 0-99 above high normal Not Available [facility] ([facility]) [address] [place], [address], 08/21/2024 07:10:00 08/21/19 25 08/21/2024 COMP. METAB OLIC PANEL (14) glucose 89 mg/dL 70-99 Not Available [facility] ([facility]) [address] [place], [address], 08/21/2024 07:10:01 08/21/19 25 08/21/2024 COMP. METAB OLIC PANEL (14) BUN 11 mg/dL 6-24 Not Available [facility] ([facility]) [address] [place], [address], 08/21/2024 07:10:01 08/21/19 25 08/21/2024 COMP. METAB OLIC PANEL (14) creatinine 0.87 mg/dL 0.57-1 .00 Not Available [facility] ([facility]) [address] [place], [address], 08/21/2024 07:10:01 08/21/19 25 08/21/2024 COMP. METAB OLIC PANEL (14) eGFR 82 mL/mi n/1.7 3 >59 Not Available [facility] ([facility]) [address] [facility], [place], [address], 08/21/2024 07:10:01 08/21/19 25 08/21/2024 COMP. METAB OLIC PANEL (14) BUN/creatini ne ratio 13 9-23 Not Available [facility] ([facility]) [address] [facility], [place], [address], 08/21/2024 07:10:01 08/21/19 25 08/21/2024 COMP. METAB OLIC PANEL (14) sodium 140 mmol/ L 134-14 4 Not Available [facility] ([facility]) [address] [place] [place], [address], 08/21/2024 07:10:01 08/21/19 25 08/21/2024 COMP. METAB OLIC PANEL (14) potassium 4.6 mmol/ L 3.5-5. 2 Not Available [facility] ([facility]) [address] [facility], [place], [address], 08/21/2024 07:10:01 08/21/19 25 08/21/2024 COMP. METAB OLIC PANEL (14) chloride 105 mmol/ L 96-106 Not Available [facility] ([facility]) [address] [place] [place], [address], 08/21/2024 07:10:01 08/21/19 25 08/21/2024 COMP. METAB OLIC PANEL (14) carbon dioxide, total 24 mmol/ L 20-29 Not Available [facility] ([facility]) [address] [place] [place], [address], 08/21/2024 07:10:01 08/21/19 25 08/21/2024 COMP. METAB OLIC PANEL (14) calcium 9.7 mg/dL 8.7-10 .2 Not Available [facility] ([facility]) [address] [place], [address], 08/21/2024 07:10:01 08/21/19 25 08/21/2024 COMP. METAB OLIC PANEL (14) protein, total 6.9 g/dL 6.0-8. 5 Not Available [facility] ([facility]) [address] [facility], [address], 08/21/2024 07:10:01 08/21/19 25 08/21/2024 COMP. METAB OLIC PANEL (14) albumin 4.5 g/dL 3.9-4. 9 Not Available [facility] ([facility]) [address] [place], [address], 08/21/2024 07:10:01 08/21/19 25 08/21/2024 COMP. METAB OLIC PANEL (14) globulin, total 2.4 g/dL 1.5-4. 5 Not Available [facility] ([facility]) [address] [place] [place], [address], 08/21/2024 07:10:01 08/21/19 25 08/21/2024 COMP. METAB OLIC PANEL (14) bilirubin, total 0.2 mg/dL 0.0-1. 2 Not Available [facility] ([facility]) [address] [place], [address], 08/21/2024 07:10:01 08/21/19 25 08/21/2024 COMP. METAB OLIC PANEL (14) alkaline phosphatase 54 IU/L 44-121 Not Available [facility]) [address] [place], [address], 08/21/2024 07:10:01 08/21/19 25 08/21/2024 COMP. METAB OLIC PANEL (14) AST (SGOT) 21 IU/L 0-40 Not Available [facility] ([facility]) [address] [facility], [place], [address], 08/21/2024 07:10:01 08/21/19 25 08/21/2024 COMP. METAB OLIC PANEL (14) ALT (SGPT) 10 IU/L 0-32 Not Available [facility] ([facility]) [address] [facility], [place], [address], 08/21/2024 07:10:01 08/21/19 25 08/21/2024 VITAM IN B12 AND FOLAT E vitamin B12 661 pg/mL 232-12 45 Not Available [facility] ([facility]) [address] [facility], [place], [address], 08/21/2024 07:10:03 08/21/19 25 08/21/2024 VITAM IN B12 AND FOLAT E folate (folic acid), serum 15.5 NG/mL >3.0 A serum folat e marco a ntrat ion of less than 3.1 ng/mL is consi dered to repre sent clini carroll defic iency . Not Available [facility] ([facility]) [address] [facility], [place], [address], 08/21/2024 07:10:03 08/21/19 25 08/21/2024 HEMOG LOBIN A1C hemoglobin A1C 5.1 % 4.8-5. 6 Predi abete s: 5.7 - 6.4 Diabe aniket: >6.4 Glyce anne contr ol for adult s with diabe aniket: <7.0 Not Available [facility] ([facility]) [address] [place], [address], 08/21/2024 07:10:05 08/21/19 25 08/21/2024 CBC WITH DIFFE RENTI AL/PL ATELE T WBC 7.1 x10e3 /uL 3.4-10 .8 Not Available [facility] ([facility]) [address] [place], [address], 08/21/2024 07:10:06 08/21/19 25 08/21/2024 CBC WITH DIFFE RENTI AL/PL ATELE T RBC 5.02 x10e6 /uL 3.77-5 .28 Not Available [facility] ([facility]) [address] [place], [address], 08/21/2024 07:10:06 08/21/19 25 08/21/2024 CBC WITH DIFFE RENTI AL/PL ATELE T hemoglobin 14.7 g/dL 11.1-1 5.9 Not Available [facility] ([facility]) [address] [place], [address], 08/21/2024 07:10:06 08/21/19 25 08/21/2024 CBC WITH DIFFE RENTI AL/PL ATELE T hematocrit 46.8 % 34.0-4 6.6 above high normal Not Available [facility] ([facility]) [address] [place], [address], 08/21/2024 07:10:06 08/21/19 25 08/21/2024 CBC WITH DIFFE RENTI AL/PL ATELE T MCV 93 fL 79-97 Not Available [facility] ([facility]) [address] [place], [address], 08/21/2024 07:10:06 08/21/19 25 08/21/2024 CBC WITH DIFFE RENTI AL/PL ATELE T MCH 29.3 pg 26.6-3 3.0 Not Available [facility] ([facility]) [address] [place], [address], 08/21/2024 07:10:06 08/21/19 25 08/21/2024 CBC WITH DIFFE RENTI AL/PL ATELE T MCHC 31.4 g/dL 31.5-3 5.7 below low normal Not Available [facility] ([facility]) [address] [place], [address], 08/21/2024 07:10:06 08/21/19 25 08/21/2024 CBC WITH DIFFE RENTI AL/PL ATELE T RDW 13.1 % 11.7-1 5.4 Not Available [facility] ([facility]) [address] [facility], [place], [address], 08/21/2024 07:10:06 08/21/19 25 08/21/2024 CBC WITH DIFFE RENTI AL/PL ATELE T platelets 271 x10e3 /uL 150-45 0 Not Available [facility] ([facility]) [address] [facility], [place], [address], 08/21/2024 07:10:06 08/21/19 25 08/21/2024 CBC WITH DIFFE RENTI AL/PL ATELE T neutrophils 70 % notest ab. Not Available [facility] ([facility]) [address] [facility], [place], [address], 08/21/2024 07:10:06 08/21/19 25 08/21/2024 CBC WITH DIFFE RENTI AL/PL ATELE T lymphs 23 % notest ab. Not Available [facility] ([facility]) [address] [facility], [place], [address], 08/21/2024 07:10:06 08/21/19 25 08/21/2024 CBC WITH DIFFE RENTI AL/PL ATELE T monocytes 6 % notest ab. Not Available [facility] ([facility]) [address] [facility], [place], [address], 08/21/2024 07:10:06 08/21/19 25 08/21/2024 CBC WITH DIFFE RENTI AL/PL ATELE T eos 1 % notest ab. Not Available [facility] ([facility]) [address] [facility], [place], [address], 08/21/2024 07:10:06 08/21/19 25 08/21/2024 CBC WITH DIFFE RENTI AL/PL ATELE T basos 0 % notest ab. Not Available [facility] ([facility]) [address] [facility], [place], [address], 08/21/2024 07:10:06 08/21/19 25 08/21/2024 CBC WITH DIFFE RENTI AL/PL ATELE T neutrophils (absolute) 4.9 x10e3 /uL 1.4-7. 0 Not Available [facility] ([facility]) [address] [facility], [place], [address], 08/21/2024 07:10:06 08/21/19 25 08/21/2024 CBC WITH DIFFE RENTI AL/PL ATELE T lymphs (absolute) 1.6 x10e3 /uL 0.7-3. 1 Not Available [facility] ([facility]) [address] [facility], [place], [address], 08/21/2024 07:10:06 08/21/19 25 08/21/2024 CBC WITH DIFFE RENTI AL/PL ATELE T monocytes(ab solute) 0.4 x10e3 /uL 0.1-0. 9 Not Available [facility] ([facility]) [address] [place], [address], 08/21/2024 07:10:06 08/21/19 25 08/21/2024 CBC WITH DIFFE RENTI AL/PL ATELE T eos (absolute) 0.1 x10e3 /uL 0.0-0. 4 Not Available [facility] ([facility]) [address] [place], [address], 08/21/2024 07:10:06 08/21/19 25 08/21/2024 CBC WITH DIFFE RENTI AL/PL ATELE T baso (absolute) 0.0 x10e3 /uL 0.0-0. 2 Not Available [facility] ([facility]) [address] [place], [address], 08/21/2024 07:10:06 08/21/19 25 08/21/2024 CBC WITH DIFFE RENTI AL/PL ATELE T immature granulocytes 0 % notest ab. Not Available [facility] ([facility]) [address] [facility], [place], [address], 08/21/2024 07:10:06 08/21/19 25 08/21/2024 CBC WITH DIFFE RENTI AL/PL ATELE T immature grans (abs) 0.0 x10e3 /uL 0.0-0. 1 Not Available [facility] ([facility]) [address] [facility], [place], [address], 08/21/2024 07:10:06 09/13/19 24 08/30/2023 PFT, compl ete No observ ation record ed. [facility] [address], [place], [address], 09/20/2023 15:28:18 12/13/19 24 12/13/2023 MAMMO , scree anders, bilat eral No observ ation record ed. [email or web address] [facility] [address], [place], [address], 12/13/2023 18:00:46 01/03/20 24 12/15/2020 colon oscop y scree anders (PROC ) No observ ation record ed. BARCODE Not Available 2023 12:13:37 01/03/20 24 01/03/2024 XR, foot, 3 or more view No observ ation record ed. [facility] [address], [place], [address], 01/04/2024 09:34:55 01/03/20 24 01/03/2024 XR, hip, unila teral No observ ation record ed. [facility] [address], [place], [address], 01/04/2024 09:34:55 07/11/19 25 07/10/2024 XR, chest , 2 view No observ ation record ed. [facility] [address], [place], [address], 07/10/2024 13:12:59 11/16/19 25 11/14/2024 XR, kidne y + urete r + bladd er No observ ation record ed. [facility] [place] [address], [place], [address], 11/15/2024 16:34:14 11/23/19 25 11/22/2024 CT, abdom en + pelvi s, w/o contr ast No observ ation record ed. [facility] [address] , [place], [address], 11/23/2024 14:15:53 12/05/19 25 12/04/2024 US, pelvi s, trans abdom inal + trans vagin al No observ ation record ed. [facility] [address] , [place], [address], 12/06/2024 09:49:07 12/30/1912/28/2024 MAMMO , scree anders, digit al, bilat eral No observ ation record ed. [email or web address] [place] [address], [place], [address], 12/29/2024 10:37:10 Result Notes None recorded. Problems Name Problem SNOMED Code Status Onset Date Resolution Date Notes Provider Name and Address Organization Details Recorded Time Migraine 60913145 Active 2023 NAKUL Lau Attn: Billy g,[address], [place], [address], [facility] 4 14:22:53 Family history of coronary arterioscleros is 793094831 Active 2023 NAKUL Lau Attn: Billy g,[address], [place], [address], [place] [facility] 4 14:22:54 Long-term drug therapy Active 2023 NAKUL Lau Attn: Billy g,[address] [facility], [place], [address], [place] [facility] 4 14:22:56 Benign essential hypertension 6917104 Active 2023 NAKUL Lau Attn: Accountkathy g,[address] [facility], [place], [address], [facility] 4 13:52:15 Body mass index 25-29 - overweight 380421390 Active 2024 BRIAN Sweeney, [facility] 5 14:19:14 Overweight 748479320 Active 2024 NAKUL Lau Attn: Accountkathy g,[address] [facility], [place], [address], [facility] - [facility] 5 11:34:35 Problem Notes None recorded. Procedures Surgical History Date Name Laterality Status Provider Name and Address Organization Details Recorded Time 12/16/19 colonoscopy completed Marcelina Venegas [facility] 01/03/2024 12:33:03 Eye Surgery completed Jeff Hamm MA [facility] 08/12/2023 12:43:13 D & c after delivery completed Jeff Hamm MA [facility] 08/12/2023 12:43:20 hysterectomy completed Jeff Hamm MA [facility] 08/12/2023 12:43:25 Imaging Results None recorded. Procedure Notes None recorded. Medical Equipment None Reported. Allergies Allergen ID Allergen Name Allergen Category Reaction Reaction Severity Criticality Documentation Date Start Date Code Code System Note Provider Name and Address Organization Details Recorded Time 250224 Product containin g penicilli n (product) medicatio n rash Not available Not available 01/03/2024 72929 8001 SNOMED BRIAN Sweeney, [facility] 4 12:24:23 Medications Name Sig Start Date Stop Date Status Note LastModified by Organization Details LastModified Time Prescripti on - Prior Authorizat ion Request active Not Available Not Available Not Available doxycyclin e hyclate 100 mg capsule TAKE 1 CAPSULE BY MOUTH TWICE DAILY 08/31 completed Not Available Not Available Not Available clindamyci n HCl 300 mg capsule TAKE 1 CAPSULE BY MOUTH FOUR TIMES DAILY 01/02 completed Not Available Not Available Not Available azithromyc in 250 mg tablet TAKE 2 TABLETS (500 MG) BY ORAL ROUTE ONCE DAILY FOR 1 DAY THEN 1 TABLET (250 MG) BY ORAL ROUTE ONCE DAILY FOR 4 DAYS 08/31 completed Not Available Not Available Not Available diltiazem CD 300 mg capsule,ex tended release 24 hr TAKE 1 CAPSULE BY MOUTH EVERY DAY 02/16 completed Not Available Not Available Not Available hydrocodon e 7.5 mg-acetami nophen 325 mg tablet TAKE 1 TABLET BY MOUTH EVERY 4 TO 6 HOURS NEEDED FOR PAIN 01/02 completed Not Available Not Available Not Available prednisone 50 mg tablet TAKE 1 TABLET BY MOUTH EVERY DAY FOR 5 DAYS 08/11 completed Not Available Not Available Not Available losartan 25 mg tablet TAKE 2 TABLETS BY MOUTH DAILY DIRECTED 01/02 completed pt isnt taking it states that she hasn't been taking Not Available Not Available Not Available progestero ne micronized 200 mg capsule TAKE 1 CAPSULE BY MOUTH EVERY DAY active Not Available Not Available No t Available betamethas one dipropiona te 0.05 % topical cream APPLY TWICE DAILY NEEDED FOR ITCHING 08/11 completed Not Available Not Available Not Available diclofenac sodium 75 mg tablet,del ayed release TAKE 1 TABLET BY MOUTH TWICE DAILY WITH MEALS . 02/16 completed Not Available Not Available Not Available etodolac 400 mg tablet TAKE 1 TABLET BY MOUTH EVERY 8 TO 12 HOURS 01/02 completed Not Available Not Available Not Available hydroxyzin e HCl 25 mg tablet Take 1-2 tablets p.o. q.h.s. for sleep active Not Available Not Available No t Available methylpred nisolone 4 mg tablets in a dose pack FOLLOW PACKAGE DIRECTIO NS 08/31 completed Not Available Not Available Not Available clobetasol 0.05 % scalp solution APPLY TO AFFECTED AREAS ON THE SCALP 1-2 TIMES DAILY NEEDED. 08/31 completed pt hasn't had this for a while Not Available Not Available Not Available cefdinir 300 mg capsule TAKE 1 CAPSULE BY MOUTH EVERY 12 HOURS 08/11 completed Not Available Not Available Not Available clotrimazo le 1 % topical cream APPLY 1 APPLICAT ION EXTERNAL LY TWICE A DAY FOR 10 DAYS 08/11 completed Not Available Not Available Not Available progestero ne micronized 100 mg capsule TAKE 1 CAPSULE BY MOUTH EVERY DAY AT BEDTIME 08/31 completed Not Available Not Available Not Available estradiol 0.025 mg/24 hr semiweekly transderma l patch APPLY 1 PATCH TOPICALL Y TO THE SKIN 2 TIMES A WEEK active Not Available Not Available No t Available ciprofloxa rosa 0.3 %-dexameth asone 0.1 % ear drops,susp ension INSTILL 4 DROPS INTO AFFECTED EAR(S) TWICE A DAY FOR 7 DAYS 08/11 completed Not Available Not Available Not Available chlorhexid ine gluconate 0.12 % mouthwash RINSE WITH 15 ML BY MOUTH THREE TIMES DAILY . DO NOT USE UNTIL 24 HOURS AFTER SURGERY 01/02 completed Not Available Not Available Not Available Virtussin AC 10 mg-100 mg/5 mL oral liquid Take 10 mL every 4-6 hours by oral route as needed. 08/31 completed Not Available Not Available Not Available Nurtec ODT 75 mg disintegra ting tablet TAKE 1 TABLET EVERY 24 HOURS BY MOUTH NEEDED MIGRANE active Not Available Not Available No t Available Wegovy 1 mg/0.5 mL subcutaneo us pen injector ADMINIST ER 1 MG UNDER THE SKIN EVERY WEEK 02/16 completed Not Available Not Available Not Available Wegovy 0.25 mg/0.5 mL subcutaneo us pen injector INJECT 0.25MG EVERY WEEK SUBCUTAN EOUSLY 01/02 completed Not Available Not Available Not Available Wegovy 0.5 mg/0.5 mL subcutaneo us pen injector ADMINIST ER 0.5 MG UNDER THE SKIN EVERY WEEK 01/02 completed Not Available Not Available Not Available Zepbound 5 mg/0.5 mL subcutaneo us pen injector ADMINIST ER 5 MG UNDER THE SKIN EVERY WEEK 08/31 completed Not Available Not Available Not Available Zepbound 2.5 mg/0.5 mL subcutaneo us pen injector ADMINIST ER 2.5 MG UNDER THE SKIN EVERY WEEK 08/31 completed Not Available Not Available Not Available Vitals Date Recorded Body height Body mass index (BMI) Body weight Respiratory rate Oxygen saturation Oxygen saturation in Arterial blood by Pulse oximetry Heart rate Systolic And Diastolic Provider Name and Address Organization Details Last Updated DateTime 5 157.48 cm 26.5 kg/m2 73558.8 9 g 18 /min 99 % 99 % 68 /min 118/82 mm[Hg] Jeff Hamm MA [facility] 5 14:20:47 Date Recorded Systolic And Diastolic Provider Name and Address Organization Details Last Updated DateTime 08/12/2023 130/80 mm[Hg] NAKUL Lau Attn: Accounting,[address] [place], [address], [facility] 08/12/2023 13:19:41 Date Recorded Body height Body mass index (BMI) Body weight Respiratory rate Oxygen saturation Oxygen saturation in Arterial blood by Pulse oximetry Heart rate Systolic And Diastolic Provider Name and Address Organization Details Last Updated DateTime 4 157.48 cm 25.8 kg/m2 92226.9 6 g 20 /min 99 % 99 % 74 /min 122/82 mm[Hg] Jeff Hamm MA [facility] 4 12:41:21 Date Recorded Respiratory rate Systolic And Diastolic Provider Name and Address Organization Details Last Updated DateTime 08/31/2024 18 /min 118/80 mm[Hg] NAKUL Lau Attn: Accounting, [place], [address], [facility] 08/31/2024 15:50:07 Date Recorded Body height Body mass index (BMI) Body weight Oxygen saturation Oxygen saturation in Arterial blood by Pulse oximetry Heart rate Systolic And Diastolic Provider Name and Address Organization Details Last Updated DateTime 5 157.48 cm 24.2 kg/m2 96265.9 9 g 98 % 98 % 60 /min 110/82 mm[Hg] Jeff Hamm MA [facility] 5 15:30:52 Date Recorded Systolic And Diastolic Provider Name and Address Organization Details Last Updated DateTime 01/03/2024 118/80 mm[Hg] NAKUL Lau Attn: Accounting,[address] [place], [address], [facility] 01/03/2024 12:56:47 Date Recorded Body height Body mass index (BMI) Body weight Respiratory rate Oxygen saturation Oxygen saturation in Arterial blood by Pulse oximetry Heart rate Systolic And Diastolic Provider Name and Address Organization Details Last Updated DateTime 4 157.48 cm 24.7 kg/m2 30619.9 7 g 18 /min 98 % 98 % 62 /min 128/82 mm[Hg] Jeff Hamm MA [facility] 4 12:28:20 Date Recorded Systolic And Diastolic Provider Name and Address Organization Details Last Updated DateTime 02/17/2024 120/80 mm[Hg] NAKUL Lau Attn: Accounting,[address] [place], [address], [facility] 02/17/2024 14:19:00 Date Recorded Body height Oxygen saturation Oxygen saturation in Arterial blood by Pulse oximetry Heart rate Body mass index (BMI) Body weight Systolic And Diastolic Provider Name and Address Organization Details Last Updated DateTime 4 157.48 cm 98 % 98 % 70 /min 24.9 kg/m2 87367.6 4 g 110/80 mm[Hg] Onelia Waller MA [facility] 14:02:41 Social History Question Answer Notes LastModified by Organizat ion Details LastModified Time Tobacco Smoking Status Never Smoker Jeff Hamm MA null, [facility] 08/12/2023 12:38:20 Do You Have An Advance Directive? Yes Information not available 08/12/2023 Are You Blind Or Do You Have Difficulty Seeing? No Glasses Information not available 08/12/2023 What Is Your Level Of Caffeine Consumption? Moderate Information not available 08/12/2023 In The 14 Days Before Symptom Onset, Have You Had Close Contact With A Laboratory-confir med COVID-19 While That Case Was Ill? No Information not available 08/11/2023 In The 14 Days Before Symptom Onset, Have You Had Close Contact With A Person Who Is Under Investigation For COVID-19 While That Person Was Ill? No Information not available 08/11/2023 Have You Been To An Area Known To Be High Risk For COVID-19? No Information not available 08/11/2023 Are You Deaf Or Do You Have Serious Difficulty Hearing? No Information not available 08/12/2023 What Type Of Diet Are You Following? REGULAR Information not available 08/12/2023 Are There Any Guns Present In Your Home? No Information not available 08/12/2023 What Was The Date Of Your Most Recent Tobacco Screening? 08/31/2024 Information not available 08/31/2024 What Is Your Relationship Status? Information not available 08/12/2023 Do You Use Your Seat Belt Or Car Seat Routinely? Yes Information not available 08/11/2023 Do You Have Smoke And Carbon Monoxide Detectors In Your Home? Yes Information not available 08/11/2023 Do You Use Sunscreen Routinely? Yes Information not available 08/12/2023 Has Tobacco Cessation Counseling Been Provided? Yes Information not available 08/11/2023 On What Date Was Tobacco Cessation Counseling Provided? 08/31/2024 Information not available 08/31/2024 Sex: Female Functional Status Question Answer Note LastModified by Organizat ion Details LastModified Time Do you use any illicit or recreational drugs? No Information not available 08/12/2023 Do you or have you ever used any other forms of tobacco or nicotine? No Information not available 08/12/2023 What is your level of alcohol consumption? Occasional Information not available 08/12/2023 Are you currently employed? Yes Information not available 08/12/2023 Are you able to care for yourself independently? 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 Moderate Information not available 08/12/2023 Mental Status None recorded. Family History Relationship Description Onset Age of this Age Resolved Age Notes LastModified by Organization Details LastModified Time Mother Malignant neoplasm of colon tcarterma Not available 2023 12:43:42 Mother Depressive disorder tcarterma Not available 2023 12:43:47 Mother Diabetes mellitus tcarterma Not available 2023 12:43:54 Mother Disorder of thyroid gland tcarterma Not available 2023 12:43:58 Mother Heart disease tcarterma Not available 2023 12:44:03 Mother Hypertensive disorder tcarterma Not available 2023 12:44:08 Mother Kidney disease tcarterma Not available 2023 12:44:20 Mother Migraine tcarterma Not availabl e 08/12/2023 12:44:26 Father Hypercholest erolemia tcarterma Not available 2023 12:44:14 Father Malignant neoplasm of prostate tcarterma Not available 2023 12:44:33 Notes:no change Medical History Condition Response Coronary Artery Disease N Other N Atrial Fibrillation N High Blood Pressure Y Thyroid Problems N Kidney or Bladder Problems N Depression N COPD N Blood Clots N GI Problems Y Skin Problems N Anemia N Heart Attack (OR) N Diabetes N Anxiety Disorder N Muscle, Joint, or Bone Problems Y Seizures/Epilepsy N Acid Reflux (GERD) N Cancer N Stroke N Allergies Y Asthma N High Cholesterol N Hepatitis N Liver Disease N Headaches Y Osteoporosis N Heart Failure N Gynecological History Statement/Question Response Menses Monthly N Current Control Method Hysterectom y Obstetrics History GPAL:G 3 P 2 0 0 2 Type Value Full Term 2 Induced 0 Spontaneous 0 Premature 0 Living 2 Total 3 Immunizations Vaccine Type Date Status Note Provider Nam e and Address Organization Details Recorded Time COVID-19, mRNA, LNP-S, PF, 30 mcg/0.3 mL dose 07/05/2020 completed BRIAN [place], [place] [facility] 02/16/2024 14:22:33 COVID-19, mRNA, LNP-S, PF, 30 mcg/0.3 mL dose 07/27/2020 completed BRIAN [place]weeney, [place] [facility] 02/16/2024 14:22:33 Past Encounters Encounter ID Performer Location Encounter Start Date Encounter Closed Date Diagnosis/Indication Diagnosis SNOMED-CT Code Diagnosis ICD10 Code Diagnosis IMO Codes Diagnosis Note [id number] Yony Dejesus MD [facility] [employer] [address] [place] [address] 08/12/2023 12:10:38 08/12/2023 15:47:16 Reactive airway disease 8597811346 06 J45.909 refer for formal PFT testing w/wo bronchodil ator for reactive airway symptoms. Benign ess ential hypertension 4989994 I10 stable on diltiazem CD 300mg daily and losartan 50mg daily. Adult heal th examination 929838921 Z00.01 annual wellness completed Cholesterol screening 27 1850940 Z13.220 fasting lipids due Diabetes m ellitus screening 415516327 Z13.1 annual a1c screening due Long-term drug therapy 857436008 Z79.899 cmp, cbc and b12, folate labs are due Weight gain 8371236 R63. 5 screening thyroid panel and fasting insulin Body mass index 25-29 - overweight 822711101 Z68.25 trial of wegovy as directed [id number] Yony Dejesus MD [facility] [employer] [address] [place] [address] 01/03/2024 12:03:46 01/03/2024 13:11:40 Body mass index 20-24 - normal 982830327 Z68.24 Dietary ma nagement surveillance 565989729 Z71.3 Patient would like to lose another 5-6 lb on Wegovy, refill given Pain in left foot 924711 6755 10817 M79.672 Check x-ray of left foot, start diclofenac therapy as directed Pain of le ft hip joint 2535922879 94362 M25.552 Check x-ray of left hip Benign ess ential hypertension 7327796 I10 stable on diltiazem CD 300mg daily and losartan 50mg daily. [id number] Yony Dejesus MD [facility] [employer] [address] [place] [address] 02/17/2024 13:56:33 02/17/2024 14:37:26 Body mass index 20-24 - normal 980700077 Z68.24 BMI is 24.9. Benign ess ential hypertension 4542780 I10 off all BP medication s. Blood pressure is stable in normal range today Cholesterol screening 27 5787759 Z13.220 fasting lipids due Diabetes m ellitus screening 343251212 Z13.1 annual a1c screening due Long-term drug therapy 114250356 Z79.899 cmp, cbc and b12, folate labs are due Family his tory of coronary arteriosclerosis 250796577 Z82.49 Family history of coronary artery disease noted Thyroid di sorder screening 525751686 Z13.29 Routine thyroid function testing ordered Migraine 97612716 G43.90 9 Nurtec ODT PRN use. can take over if needed. her neurologis t may be going out of network. [id number] Yony Dejesus MD [facility] [employer] [address] [place] [address] 05/10/2024 14:01:59 05/10/2024 15:01:12 Body mass index 25-29 - overweight 722264270 Z68.25 BMI 26.5 Overweight 015914681 E66 .3 Cough 13193851 R05.9 Start for Tussin AC cough syrup every 4-6 hours as needed to suppress lingering post viral cough. Flu and COVID negative today [id number] Yony Dejesus MD [facility] [employer] [address] [place] [address] 08/31/2024 15:21:16 08/31/2024 16:14:04 Adult health examination 671914759 Z00.00 3068343 annual wellness completed Benign ess ential hypertension 6751570 I10 off all BP medication s. Blood pressure is stable in normal range today Family his tory of coronary arteriosclerosis 924183269 Z82.49 Family history of coronary artery disease noted Long-term drug therapy 045202713 Z79.899 Labs reviewed Migraine 09137926 G43.90 9 Nurtec ODT PRN use. History of polyp of colon 258906095 Z86.0100 280865 repeat fall 2025. Health Concerns Section Related Observation LastModified by Organization Detai ls LastModified Time None Recorded Concern Status LastModified by Organization Details LastModified Time None Recorded Advance Directives Directive Y: Payers Insurance Date Sequence Insurance Name Policy Number Policy Fletcher Covered Member ID Fletcher Member ID Guarantor Name 09/03/2024 1 [place] ([facility] [id number] A Stacey Davies [id number] Stacey Davies Notes Date Note Type Note Provider Name and Address Organization Details Recorded Time 4 text/html HypertensionReported by Patientstable on medication. no complaints. HeadacheReported by Patientstable on PRN use nurtec ODT NAKUL Lau Attn: Accounting,[address] [facility], [place], [address], [place] [facility] 08/16/2023 11:43:58 4 text/html Patient reports with history of present illness including pain in the top of her left foot. It started after she was doing some sprinting interval runs most recently. She had no fall. But the top of the foot started hurting. She is also having some left hip joint pain as well that has been present slightly longer. She has taken some [id number]-[id number] anti-inflammatory with no gross improvement. She is here for evaluation. She is very fit and exercises routinely and wants to try to figure out what is going on so she can get back to her exercising. NAKUL Lau Attn: Accounting,[address] [facility], [place], [address], [place] 01/12/2024 16:51:49 4 text/html HypertensionReported by Patientstable off of medication. no complaints. Weight loss has helped to manage blood pressure and she stopped her medication for blood pressure on her own. HeadacheReported by Patientstable on PRN use nurtec ODT, she would like for us to take over the script NAKUL Lau Attn: Accounting,[address] [facility], [place], [address], [place] 03/03/2024 13:53:59 5 text/html Upper Respiratory SymptomsReported by PatientUpper Respiratory SymptomsFor quality, patient reportsdry cough. For location, patient reportsheadandchest. For severity, patient reportsmoderate. For onset/timing, patient reportssudden. For context, patient reportsno sick contacts(travel). For modifying factors, patient reportsotc medication. For duration, (4 weeks of a cough). NAKUL Lau Attn: Accounting,[address] [facility], [place], [address], [facility] 06/02/2024 11:35:11 5 text/html HypertensionReported by Patientstable off of medication. no complaints. Weight loss has helped to manage blood pressure and she stopped her medication for blood pressure on her own. HeadacheReported by Patientstable on PRN use nurtec ODT NAKUL Lau Attn: Accounting,[address] [facility], [place], [address], [facility] 08/31/2024 15:57:44 OBGyn Episode No OBEpisode recorded.
--- OUTSIDE RECORDS SUMMARY | 2025-01-18 10:06 | XMS_ITS | Encounter Summary ---
Author Organization [facility] Address 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
== END 2025-01-18 09:38 | disposition home or self-care (01) ==
LOC: CHSIMG 09:38
PROVIDERS: PCP Physician Assistant; Visit Provider Obstetrics & Gynecology Gynecology
DX: R92.8 Other abnormal and inconclusive findings on diagnostic imaging of breast (principal)
CPT/HCPCS: 76642; 77061; 77065; G0279